=== PATIENT | male | born 1955 | race Caucasian/White ===

== ENCOUNTER 2016-11-06 09:42 | Emergency (ER) | payer OTHER ==
[~2016-11-06] VITALS: Ht 172.7 cm; Wt 59.0 kg
[~2016-11-06 09:42] MED LIST: BACTRIM DS TAB1 EACH PO; KEFLEX500 MG PO; NORCO 5-325 TA1 EACH PO; ZPAK PO
[2016-11-06 10:13] LABS: BASOPHILS 0.7 % (0.0-2.0); EOSINOPHILS 3.9 % (0.0-3.0); HEMATOCRIT 50.2 % (42.0-52.0); HEMOGLOBIN 17.7 gm/dL (14.0-18.0); LYMPHOCYTES 38.9 % (24.0-44.0); MCH 39.3 pg (26.0-34.0); MCHC 35.3 % (28.0-37.0); MCV 111.4 fL (80.0-100.0); MONOCYTES 10.1 % (1.0-8.0); PLATELET COUNT 203 thou/uL (150-400); POLYS 46.4 % (36.0-66.0); WBC 8.6 thou/uL (4.0-11.0)
[2016-11-06 10:17] LABS: MANUAL DIFF NO
[2016-11-06] MEDS ORDERED: VITAMIN D 5050000 I1 PO (10:22)
[2016-11-06] MEDS ORDERED: ADULT LOW DOSE81 MG PO (10:22)
[2016-11-06] MEDS ORDERED: [UNRECOGNIZED DRUG - REMARK] (10:22)
[2016-11-06 10:23] LABS: CALCIUM 8.3 mg/dL (8.5-10.1); CREATININE 0.6 mg/dL (0.6-1.3); POTASSIUM 3.7 mmol/L (3.5-5.1)
[2016-11-06] MEDS ORDERED: LISINOPRIL10 MG PO (10:23)
[2016-11-06] MEDS ORDERED: GABAPENTIN 100100 MG PO (10:23)
[2016-11-06] MEDS ORDERED: UNICOMPLEX M TA1 TA1 PO (10:23)
[2016-11-06] MEDS ORDERED: FOLIC ACID1 MG PO (10:23)
[2016-11-06] MEDS ORDERED: VITAMIN B-1100 M1 PO (10:24)
[2016-11-06 10:28] LABS: ALBUMIN 3.5 g/dL (3.4-5.0); TOTAL BILIRUBIN 0.5 mg/dL (<0.1-1.0); TOTAL PROTEIN 7.1 g/dL (6.4-8.2)
[2016-11-06 11:48] LABS: URINE BLOOD NEGATIVE (Negative); URINE COLOR YELLOW; URINE GLUCOSE-RANDOM* NEGATIVE (Negative); URINE KETONES TRACE (Negative); URINE NITRITE NEGATIVE (Negative); URINE PROTEIN (DIPSTICK) TRACE (Negative)
[2016-11-06 11:49] LABS: URINE BILIRUBIN NEGATIVE (Negative)
[2016-11-06 12:21] VITALS: BP 147/95
== END 2016-11-06 12:43 | disposition home or self-care (01) ==
LOC: ER 09:42
PROVIDERS: Nurse Practitioner Family
DX: R53.1 Weakness (principal); F10.20 Alcohol dependence, uncomplicated; F17.210 Nicotine dependence, cigarettes, uncomplicated; F10.99 Alcohol use, unspecified with unspecified alcohol-induced disorder; I10 Essential (primary) hypertension; E78.5 Hyperlipidemia, unspecified; Z95.5 Presence of coronary angioplasty implant and graft; Z91.19 Patient's noncompliance with other medical treatment and regimen

== ENCOUNTER 2017-07-11 01:31 | Inpatient (IN) | payer OTHER ==
[~2017-07-11] VITALS: Ht 175.3 cm; Wt 63.3 kg
--- NOTE | ~2017-07-11 | EKG ---
[address] [address] ELECTROCARDIOGRAM REPORT Name: PÉREZZO HAINES Room #: 451-P ADM IN M.R.#: [id number] Admission: 07/11/17 Attend Phys: Hanna Huizar Discharge: Date of : 59 Report #: [id number] THIS REPORT FOR: //name// [facility] ED Test Date: 2017-07-11 Test Time: 01:47:09 Pat Name: ZO PÉREZ Department: Room: [facility] Gender: M Principal Android Developer: shirley : 1955 Requested By: Chelsey Ybarra Order Number: [id number] MD: Kermit Mckinney Measurements Intervals [place] Rate: 103 P: 71 AK: 154 QRS: 66 QRSD: 97 T: 78 QT: 350 QTc: 458 Interpretive Statements Sinus tachycardia Compared to ECG 10/29/2012 23:33:54 Poor R-wave progression no longer present Electronically Signed On 07-11-2017 9:01:59 CDT by Kermit Mckinney [email or web address] <ELECTRONICALLY SIGNED> By: Kermit Mckinney MD, [facility] 07/11/17 09 0147 014 Kermit Mckinney MD, FACC /EPI
[~2017-07-11 01:31] MED LIST changes: +ADULT LOW DOSE81 MG PO; +FOLIC ACID1 MG PO; +GABAPENTIN 100100 MG PO; +LISINOPRIL10 MG PO; +UNICOMPLEX M TA1 TA1 PO; +VITAMIN B-1100 M1 PO; +VITAMIN D 5050000 I1 PO; +[UNRECOGNIZED DRUG - REMARK]
[2017-07-11 01:32] VITALS: BP 136/86
[2017-07-11 02:07] LABS: ABSOLUTE NEUTROPHILS 3.6 thou/uL (1.4-8.2); BASOPHILS 0.6 % (0.0-2.0); EOSINOPHILS 3.2 % (0.0-3.0); HEMATOCRIT 45.9 % (42.0-52.0); LYMPHOCYTES 33.2 % (24.0-44.0); MCH 39.9 pg (26.0-34.0); MCHC 34.8 g/dL (28.0-37.0); MCV 114.5 fL (80.0-100.0); MONOCYTES 8.9 % (1.0-8.0); PLATELET COUNT 224 thou/uL (150-400); POLYS 54.1 % (36.0-66.0); RBC 4.01 mil/uL (4.50-6.00); RDW 14.5 % (10.5-14.5); WBC 6.7 thou/uL (4.0-11.0)
[2017-07-11 02:15] LABS: CALCIUM 8.3 mg/dL (8.5-10.1); CREATININE 0.5 mg/dL (0.7-1.3); MANUAL DIFF NO; POTASSIUM 3.5 mmol/L (3.5-5.1)
[2017-07-11 02:21] LABS: ALBUMIN 3.1 g/dL (3.4-5.0); DIRECT BILIRUBIN 0.1 mg/dL (<0.1-0.3); TOTAL BILIRUBIN 0.4 mg/dL (<0.1-1.0); TOTAL PROTEIN 6.7 g/dL (6.4-8.2)
[2017-07-11 02:45] LABS: URINE BILIRUBIN NEGATIVE (Negative); URINE BLOOD NEGATIVE (Negative); URINE COLOR YELLOW; URINE GLUCOSE-RANDOM* NEGATIVE (Negative); URINE KETONES NEGATIVE (Negative); URINE NITRITE NEGATIVE (Negative); URINE PROTEIN (DIPSTICK) NEGATIVE (Negative); URINE SPECIFIC GRAVITY 1.015 (1.003-1.035)
[2017-07-11 03:35] VITALS: BP 147/93
[2017-07-11 05:01] LABS: AMP/METHAMP Negative (Negative); BARBITURATES Negative (Negative); BENZODIAZEPINES Negative (Negative); COCAINE Negative (Negative); METHADONE Negative (Negative); OPIATES Negative (Negative); PCP Negative (Negative); THC Negative (Negative)
[2017-07-11 06:27] LABS: MAGNESIUM 1.7 mg/dL (1.8-2.4)
[2017-07-11 07:14] VITALS: BP 120/74
[2017-07-11 11:30] VITALS: BP 163/91
[2017-07-11 15:09] VITALS: BP 153/87
[2017-07-11 19:25] VITALS: BP 187/95
[2017-07-12 00:17] VITALS: BP 160/91
[2017-07-12 04:19] VITALS: BP 139/84
[2017-07-12 07:17] VITALS: BP 150/79
[2017-07-12 11:29] VITALS: BP 132/93
[2017-07-12 15:11] VITALS: BP 151/85
[2017-07-12 19:41] VITALS: BP 144/83
[2017-07-13 04:33] VITALS: BP 133/96
[2017-07-13 08:06] VITALS: BP 141/88
[2017-07-13] MEDS ORDERED: GABAPENTIN 100100 MG PO (10:15)
[2017-07-13] MEDS ORDERED: VITAMIN B-1100 M2 PO (10:15)
[2017-07-13] MEDS ORDERED: NORVASC10 MG PO (10:15)
[2017-07-13] MEDS ORDERED: PRENATAL PO (10:15)
[2017-07-13 10:31] VITALS: BP 141/88
== END 2017-07-13 11:04 | disposition home or self-care (01) | DRG 897 ==
LOC: ER 01:31 → 4W 02:47 → EROBS 02:47 → 4W 03:31
PROVIDERS: Emergency Medicine; Nurse Practitioner Acute Care
DX: F10.239 Alcohol dependence with withdrawal, unspecified (principal); E11.40 Type 2 diabetes mellitus with diabetic neuropathy, unspecified; I10 Essential (primary) hypertension; E78.5 Hyperlipidemia, unspecified; F10.229 Alcohol dependence with intoxication, unspecified; J44.9 Chronic obstructive pulmonary disease, unspecified; F17.210 Nicotine dependence, cigarettes, uncomplicated; E83.42 Hypomagnesemia; Z79.82 Long term (current) use of aspirin; Z79.899 Other long term (current) drug therapy; Z91.14 Patient's other noncompliance with medication regimen; Z86.73 Personal history of transient ischemic attack (TIA), and cerebral infarction without residual deficits; Z95.5 Presence of coronary angioplasty implant and graft
CPT/HCPCS: 10045

== ENCOUNTER 2019-10-05 03:55 | Inpatient (IN) | payer OTHER ==
[~2019-10-05] VITALS: Ht 175.3 cm; Wt 64.0 kg
[2019-10-05] VITALS (8 sets, daily range): BP systolic 111–138; BP diastolic 65–81
[~2019-10-05 03:55] MED LIST changes: +NORVASC10 MG PO; +PRENATAL PO; +VITAMIN B-1100 M2 PO
[2019-10-05] MEDS ORDERED: AZITHROMYCIN500 MG PO (04:00)
[2019-10-05] MEDS ORDERED: MECLIZINE HCL25 M1 PO (04:01)
[2019-10-05] MEDS ORDERED: LISINOPRIL2.5 MG PO (04:02)
[2019-10-05] MEDS ORDERED: PLAVIX 75 MG TA75 MG PO (04:02)
[2019-10-05] MEDS ORDERED: LIPITOR80 MG PO (04:03)
[2019-10-05] MEDS ORDERED: TESSALON PERLE100 M1 PO (04:03)
[2019-10-05] MEDS ORDERED: RENAL-VITE TAB0.8 MG PO (04:04)
[2019-10-05] MEDS ORDERED: ADVAIR 250-501 EACH INH (04:12)
[2019-10-05] MEDS ORDERED: PROAIR HFA8.5 GM INH (04:12)
--- NOTE | 2019-10-05 04:12 | NUR ---
RT AT BEDSIDE SPEAKING WITH PATIENT. PATIENT STATES HE IS SUPPOSED TO HAVE HOME NEBULIZER TREATMENTS, BUT DIDN'T KNOW WHERE TO GET PRESCRIPTION FILLED
[2019-10-05 04:32] LABS: BE(vivo) 1.3 mmol/L (-2 to +3); HCO3 27.9 mmol/L (22.0-26.0); PCO2 VENOUS 51.2 mmHg (41.0-51.0); PO2 VENOUS 68.6 mmHg (35.0-45.0)
[2019-10-05 04:34] LABS: ABSOLUTE NEUTROPHILS 6.9 thou/uL (1.4-8.2); BASOPHILS 0.8 % (0.0-2.0); EOSINOPHILS 15.5 % (0.0-3.0); HEMATOCRIT 48.9 % (42.0-52.0); HEMOGLOBIN 16.4 gm/dL (14.0-18.0); LYMPHOCYTES 25.1 % (24.0-44.0); MCH 32.6 pg (26.0-34.0); MCHC 33.6 g/dL (28.0-37.0); MCV 97.2 fL (80.0-100.0); MONOCYTES 8.8 % (1.0-8.0); PLATELET COUNT 348 thou/uL (150-400); POLYS 49.8 % (36.0-66.0); RBC 5.04 mil/uL (4.50-6.00); RDW 13.3 % (10.5-14.5); WBC 13.8 thou/uL (4.0-11.0)
[2019-10-05 04:41] LABS: ANION GAP 4 mmol/L (7-16); BUN 7 mg/dL (7-18); CALCIUM 9.5 mg/dL (8.5-10.1); CHLORIDE 102 mmol/L (98-107); CO2 35 mmol/L (21-32); CREATININE 0.9 mg/dL (0.7-1.3); GLUCOSE 106 mg/dL (74-106); SODIUM 141 mmol/L (136-145)
[2019-10-05 04:51] LABS: ALBUMIN 4.4 g/dL (3.4-5.0); MAGNESIUM 2.1 mg/dL (1.8-2.4); SGOT 26 U/L (15-37); SGPT 23 U/L (30-65); TOTAL BILIRUBIN 0.3 mg/dL (<0.1-1.0); TOTAL PROTEIN 8.2 g/dL (6.4-8.2); TROPONIN-I <0.06 ng/mL (<0.06)
[2019-10-05 04:56] LABS: PROTIME 10.7 Seconds (9.3-11.4)
--- NOTE | 2019-10-05 05:17 | NUR ---
HANDOFF REPORT COMPLETED AND SENT TO THE 3W PRINTER AT THIS TIME.
--- NOTE | 2019-10-05 06:40 | NUR ---
admitted to [facility]. his dtr will take his medications home today. this man is having respiratory symptoms for the past two weeks. he was on po azithromycin, but he didnt think he was getting any better and stopped taking. o2 sat 99% on the 4 liters he is curently on. he continues to smoke up to time of admission. iv fluids started. he is agreeable and friendly.
--- NOTE | 2019-10-05 08:40 | EKG ---
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
[2019-10-05 10:41] LABS: PROCALCITONIN < 0.05 ng/mL (<0.50)
--- NOTE | 2019-10-05 12:47 | NUR ---
ASSESSMENT: CM REVIEWED CHART AND MET WITH PATIENT AT THE BEDSIDE. PT WAS ADMITTED WITH COPD EXACERBATION. PT REPORTS THAT HE LIVES IN A HOUSE WITH HIS . PT REPORTS TWO STEPS TO ENTER AND NO STEPS ONCE INSIDE. PT REPORTS THAT HE AMBULATES USING A CANE AND ALSO HAS A WALKER AT HOME. PT REPORTS HE WEARS 3L OXYGEN AT HOME BUT STATES HE IS NOT SURE WHO HIS PROVIDER IS. PT REPORTS HE HAS A RX FOR A NEBULIZER BUT DOES NOT KNOW WHERE TO GET ONE AND IS IN NEED OF ONE. CM DISCUSSED WITH ATTENDING AND RX FOR NEBULIZER WAS RECEIVED AND CM REACHED OUT TO [facility] WHO STATES THEY CAN SUPPLY IT TO PT. CM CONTACTED MEDICAID PRIOR AUTH LINE [phone] AN GOT APPROVAL FOR NEBULIZER. [facility] STATES THEY WILL DELIVER PRIOR TO PT DISCHARGING. PT DENIES HAVING HH IN THE PAST OR BEING TO A SNF. PT DOES NOT ANTICIPATE HAVING ANY OTHER NEEDS PRIOR TO DISCHARGE AND IS HOPEFUL TO RETURN HOME WITH NO NEEDS. CM WILL CONTINUE TO FOLLOW.
[2019-10-05] MEDS ORDERED: NEURONTIN100 MG PO (14:20)
[2019-10-05] MEDS ORDERED: GABAPENTIN600 M1 PO (14:22)
--- NOTE | 2019-10-05 18:18 | NUR ---
RECEIVED PT'S CARE AROUND 1100; PT. AOX4; NO C/O PAIN; ST. TAKING BP MEDICATION AT HOME WELL GABAPENTIN; NO ON EMAR; PHYSICIAN AT THE BED SIDE; NOTIFIED; EDUCATED ABOUT CALLING SOLISO GETTING UP FROM BED; NO ANSWER BACK; AROUND 1400 SCHEDULED GABAPENTIN 100MG ATTEMPTED TO GIVE IT; PT. ST. DOES NOT TAKE 100 MG ANYMORE; ST. TAKES AT HOME "TWO PILLS & A HALF IN THE MORNING AND AT TWO IN THE AFTERNOON EACH PILL HAS 600 MG & JUST TWO PILLS AT NIGHT"; REFUSED GABAPENTIN 100 MG; HOME MEDICATION LIST UPDATE; PHYSICIAN NOTIFIED; NO CALL BACK; STEAK SAUCE MAKER ROUNDING ON FLOOR; NOTIFIED; ORDERS UPDATE; STEAK SAUCE MAKER NOTIFIED ABOUT HX OF DM & TAKIN STEROIDS AT THE MOMENT; PT. ON LOW SLADING SCALE; INSULIN COVER AT DINNER TIME; SA ON THE MONITOR; MONITORING; ASSESSMENT CHARGED; FOLLOWING POC; WILL PASS ON REPORT;
--- NOTE | 2019-10-05 22:37 | NUR ---
PT WATCHING TV IN BED, O2 PER NC. PT REPORTED DRY NOSE FROM O2 AND RT CALLED FOR HUMIDIFICATION. PT REPORTED TO RT THAT HIS COUGH MAKES HIS HEAD HURT, AND ALMOST PASS OUT. RT REPORTED THAT WHEN PT CAOUGHED HE DID CHANGE COLORS. COMPOSITE WORKER CONTACTED AND ORDERS RECEIVED. PT REQUESTED SNACK AND PROVIDED. PT VERBALIZED HE WILL ASK FOR ASSIST PRIOR TO AMBULATION, USING URINAL. LUNGS REMAIN COARSE WITH WHEEZES. PER PHARMACY REQUEST RE CLARIFIED PTS HOME NEURONTIN DOSES.
[2019-10-06 00:08] LABS: GLYCOHEMOGLOBIN (HGB A1C) 5.5 % (4.8-5.6)
--- NOTE | 2019-10-06 04:03 | NUR ---
Upon receiving care of patient, patient resting in bed watching TV. Patient alert and oriented x4. O2 per NC at 3.5L. Pleasant, cooperative and talkative. HRR. Ambulatory with cane and standby assist. Call light within reach. Denies pain or discomfort. Patient had an episode of increased cough and difficulty breathing approximately 0335. HAMILTON Martin, notified. Order obtained for PRN nebulizer treatments and Tessalon Pearles. Patient reported nausea at that time also. Patient O2 decreased to 85%, HR increased to 120. Patient coughing up large amounts of thick, yellow mucous. RT notified and is currently providing neb tx. Patient remains on IV abx. No s/s of adverse effects noted at this time.
[2019-10-06 04:12] VITALS: BP 128/71
[2019-10-06 05:48] LABS: HEMATOCRIT 43.4 % (42.0-52.0); HEMOGLOBIN 14.5 gm/dL (14.0-18.0); MCH 32.3 pg (26.0-34.0); MCHC 33.4 g/dL (28.0-37.0); MCV 96.6 fL (80.0-100.0); PLATELET COUNT 311 thou/uL (150-400); RDW 13.2 % (10.5-14.5); WBC 26.3 thou/uL (4.0-11.0)
[2019-10-06 05:51] LABS: CALCIUM 9.1 mg/dL (8.5-10.1); CREATININE 0.8 mg/dL (0.7-1.3); MAGNESIUM 1.9 mg/dL (1.8-2.4); POTASSIUM 4.4 mmol/L (3.5-5.1)
[2019-10-06 07:29] VITALS: BP 119/68
[2019-10-06 09:37] LABS: ABSOLUTE NEUTROPHILS 23.9 thou/uL (1.4-8.2); PLATELET ESTIMATE NORMAL
[2019-10-06 15:20] VITALS: BP 99/57
--- NOTE | 2019-10-06 20:08 | NUR ---
pt is A&OX3, PT is continuing o2 3L/MIN/NC AND PO/IV ABX, PT's VS and o2sat are stable , pt denies pain and SOB .
[2019-10-06 21:00] VITALS: BP 139/65
[2019-10-07 02:43] LABS: URINE BILIRUBIN NEGATIVE (Negative); URINE BLOOD NEGATIVE (Negative); URINE CLARITY CLEAR; URINE COLOR YELLOW; URINE GLUCOSE-RANDOM* 1+ (Negative); URINE KETONES NEGATIVE (Negative); URINE LEUKOCYTES NEGATIVE (Negative); URINE NITRITE NEGATIVE (Negative); URINE PROTEIN (DIPSTICK) NEGATIVE (Negative); URINE UROBILINOGEN 0.2 E.U./dl (0.2-1.0)
--- NOTE | 2019-10-07 03:34 | NUR ---
URINE CULTURE AND UA COLLECTED. TONIGHT. COUGHING FORCEFULLY, AND HE IS COUGHING UP SPUTUM. TAKING LARGE AMOUNTS OF WATER PO. CAREPLAN REVIEWED.
[2019-10-07 04:50] VITALS: BP 122/62
[2019-10-07 06:11] LABS: MCH 32.3 pg (26.0-34.0); MCHC 33.2 g/dL (28.0-37.0); MCV 97.2 fL (80.0-100.0); PLATELET COUNT 312 thou/uL (150-400); RBC 4.32 mil/uL (4.50-6.00); RDW 13.6 % (10.5-14.5); WBC 26.3 thou/uL (4.0-11.0)
[2019-10-07 08:35] VITALS: BP 121/77
[2019-10-07 09:03] LABS: ABSOLUTE NEUTROPHILS 22.9 thou/uL (1.4-8.2); PLATELET ESTIMATE NORMAL
--- NOTE | 2019-10-07 13:06 | NUR ---
ON-GOING ASSESSMENT: CM REVIEWED CHART AND SPOKE WITH ATTENDING. THERE WAS CONCERN FOR POSSIBLE LUNG MASS BUT CT WAS DONE AND NO LONG MASS SEEN PER ATTENDING. PT CONTINUES TO BE ON IV ANBX AND IV STEROIDS. PT IS NOT MEDICALLY STABLE FOR DISCHARGE AT THIS TIME. PT DENIES THE NEED FOR PHYSICAL THERAPY AND REPORTS HE GETS AROUND WELL. CM WILL CONTINUE TO FOLLOW TO ASSIST NEEDED.
[2019-10-07 15:37] VITALS: BP 113/63
[2019-10-07 19:06] VITALS: BP 122/63
--- NOTE | 2019-10-08 00:18 | NUR ---
PT WATCHING TV, AMBULATED IN [place]. GAIT STEADY. O2 PER NC. PT NOT C/O PAIN OR COUGH. CHEERFUL JOKING WITH STAFF. NO CONCERNS EXPRESSED RE LLE SIDE NUMBNESS WEAKNESS. LUNGS WITH WHEEZES.
[2019-10-08 04:07] VITALS: BP 130/69
[2019-10-08 08:00] VITALS: BP 130/80
[2019-10-08] MEDS ORDERED: ACETAMINOPHEN325 M1 PO (12:25)
[2019-10-08] MEDS ORDERED: IPRAT-ALBUT 0.5-3 ML INH (12:25)
[2019-10-08] MEDS ORDERED: RAYOS5 MG PO (12:25)
[2019-10-08] MEDS ORDERED: HYDROCODONE-CH115 ML PO (12:25)
[2019-10-08] MEDS ORDERED: AZITHROMYCIN 2250 MG PO (12:25)
[2019-10-08] MEDS ORDERED: MUCINEX600 MG PO (12:25)
[2019-10-08] MEDS ORDERED: CEFUROXIME500 MG PO (12:25)
--- NOTE | 2019-10-08 12:52 | NUR ---
ON-GOING ASSESSMENT: PT HAS ORDERS TO DISCHAGRE HOME TODAY. PT HAS A RX FOR NEBULIZER AND NO PREFERENCE OF DME COMPANY. CM CONTACTED [facility] WHO STATS SHE WILL DELIVER THE NEBULIZER TO HIS ROOM SHORTLY. [facility]AS[facility] WAS ALREADY GIVEN RX. CM NOTIFIED BEDSIDE RN AND PATIENT. PT ALREADY HAS HOME OXYGEN ARRANGED AND PTS DAUGHTER IS BRINGING UP A PORTABLE TANK FOR HIM TO HAVE AT DISCHARGE. PT REPORTS NO FURTHER NEEDS FROM CM.
[2019-10-08 12:53] VITALS: BP 130/80
[2019-10-08 12:57] VITALS: BP 130/80
--- NOTE | 2019-10-08 13:15 | NUR ---
pt is A&O X3, PT is continuing IV and po ABX, PT IS ON O2 3L/MIN/NC, PT denies sob when pt walks in the hallway, pt's vs are stable, RN has received order , pt will d/c to home soon.
== END 2019-10-08 14:13 | disposition home health service (06) | DRG 189 ==
LOC: ER 03:55 → EROBS 04:51 → 3W 04:51 → ENTRNSPT 10-08 14:06 → EDTRNSPTSTS 10-08 14:08 → 3W 10-08 14:13
PROVIDERS: Emergency Medicine; Nurse Practitioner; ADMIT Internal Medicine
DX: J96.21 Acute and chronic respiratory failure with hypoxia (principal); I69.354 Hemiplegia and hemiparesis following cerebral infarction affecting left non-dominant side; J43.9 Emphysema, unspecified; I10 Essential (primary) hypertension; E78.5 Hyperlipidemia, unspecified; R91.8 Other nonspecific abnormal finding of lung field; E11.51 Type 2 diabetes mellitus with diabetic peripheral angiopathy without gangrene; F17.210 Nicotine dependence, cigarettes, uncomplicated; E11.42 Type 2 diabetes mellitus with diabetic polyneuropathy; F10.10 Alcohol abuse, uncomplicated; J96.22 Acute and chronic respiratory failure with hypercapnia; D72.829 Elevated white blood cell count, unspecified; Z95.820 Peripheral vascular angioplasty status with implants and grafts; Z71.6 Tobacco abuse counseling; Z71.41 Alcohol abuse counseling and surveillance of alcoholic
CPT/HCPCS: 10879

== ENCOUNTER 2020-02-26 13:30 | Emergency (ER) | payer OTHER ==
[~2020-02-26] VITALS: Ht 172.7 cm; Wt 71.2 kg
[~2020-02-26 13:30] MED LIST changes: +ACETAMINOPHEN325 M1 PO; +ADVAIR 250-501 EACH INH; +AZITHROMYCIN 2250 MG PO; +AZITHROMYCIN500 MG PO; +CEFUROXIME500 MG PO; +GABAPENTIN600 M1 PO; +HYDROCODONE-CH115 ML PO; +IPRAT-ALBUT 0.5-3 ML INH; +LIPITOR80 MG PO; +LISINOPRIL2.5 MG PO; +MECLIZINE HCL25 M1 PO; +MUCINEX600 MG PO; +NEURONTIN100 MG PO; +PLAVIX 75 MG TA75 MG PO; +PROAIR HFA8.5 GM INH; +RAYOS5 MG PO; +RENAL-VITE TAB0.8 MG PO; +TESSALON PERLE100 M1 PO
[2020-02-26 13:56] LABS: ABSOLUTE NEUTROPHILS 6.6 thou/uL (1.4-8.2); BASOPHILS 0.8 % (0.0-2.0); EOSINOPHILS 1.5 % (0.0-3.0); HEMATOCRIT 45.1 % (42.0-52.0); HEMOGLOBIN 15.7 gm/dL (14.0-18.0); LYMPHOCYTES 19.1 % (24.0-44.0); MCH 33.2 pg (26.0-34.0); MCHC 34.7 g/dL (28.0-37.0); MCV 95.5 fL (80.0-100.0); MONOCYTES 9.5 % (1.0-8.0); PLATELET COUNT 216 thou/uL (150-400); POLYS 69.1 % (36.0-66.0); RBC 4.73 mil/uL (4.50-6.00); RDW 17.5 % (10.5-14.5); WBC 9.6 thou/uL (4.0-11.0)
[2020-02-26 14:04] LABS: ANION GAP 12 mmol/L (7-16); BUN 10 mg/dL (7-18); CALCIUM 8.3 mg/dL (8.5-10.1); CHLORIDE 102 mmol/L (98-107); CO2 28 mmol/L (21-32); CREATININE 0.7 mg/dL (0.7-1.3); GLUCOSE 115 mg/dL (74-106); POTASSIUM 3.8 mmol/L (3.5-5.1); SODIUM 142 mmol/L (136-145)
[2020-02-26 14:13] LABS: APTT 29.6 Seconds (24.5-32.8); PROTIME 9.8 Seconds (9.3-11.4)
[2020-02-26 14:15] LABS: ALBUMIN 3.7 g/dL (3.4-5.0); MAGNESIUM 1.9 mg/dL (1.8-2.4); SGOT 52 U/L (15-37); SGPT 31 U/L (30-65); TOTAL BILIRUBIN 0.5 mg/dL (<0.1-1.0); TOTAL PROTEIN 8.1 g/dL (6.4-8.2); TROPONIN-I <0.06 ng/mL (<0.06)
[2020-02-26 15:49] VITALS: BP 174/91
--- NOTE | 2020-02-26 23:05 | EKG ---
[facility] [address] ELECTROCARDIOGRAM REPORT Name: BETOZO Room #: DEP [facility]#: [id number] Admission: 02/26/20 Attend Phys: Discharge: 02/26/20 Date of : 59 Report #: [id number] THIS REPORT FOR: cc: HANSEL FRIEND [facility] - Family physician unknown Jerardo Robles MD ~ THIS REPORT FOR: //name// [facility] ED Test Date: 2020-02-26 Test Time: 13:54:05 Pat Name: ZO PÉREZ Department: Room: Gender: M Personal Injury Litigation Paralegal: [facility] : 1955 Requested By: Maurice Parks Order Number: [id number] MD: Jerardo Robles Measurements Intervals [place] Rate: 95 P: 77 CO: 148 QRS: 64 QRSD: 94 T: 75 QT: 350 QTc: 440 Interpretive Statements Sinus rhythm Compared to ECG 10/05/2019 04:00:49 Sinus tachycardia no longer present Electronically Signed On 02-26-2020 23:03:38 CDT by Jerardo Robles [email or web address] <ELECTRONICALLY SIGNED> By: Jerardo Robles MD 02/26/20 2303 1354 1354 Jerardo Robles MD /PARTH
== END 2020-02-26 15:49 | disposition left against medical advice (07) ==
LOC: ER 13:30
PROVIDERS: Emergency Medicine
DX: R20.2 Paresthesia of skin (principal); F10.920 Alcohol use, unspecified with intoxication, uncomplicated; J44.9 Chronic obstructive pulmonary disease, unspecified; R20.0 Anesthesia of skin; R53.1 Weakness; E11.9 Type 2 diabetes mellitus without complications; I10 Essential (primary) hypertension; E78.5 Hyperlipidemia, unspecified; F17.210 Nicotine dependence, cigarettes, uncomplicated; Z98.61 Coronary angioplasty status; Z86.73 Personal history of transient ischemic attack (TIA), and cerebral infarction without residual deficits; Z79.2 Long term (current) use of antibiotics; Z79.899 Other long term (current) drug therapy; Y90.8 Blood alcohol level of 240 mg/100 ml or more

== ENCOUNTER 2020-04-05 03:20 | Emergency (ER) | payer OTHER ==
[~2020-04-05] VITALS: Ht 175.3 cm; Wt 70.3 kg
[2020-04-05 03:46] LABS: ABSOLUTE NEUTROPHILS 2.9 thou/uL (1.4-8.2); BASOPHILS 0.6 % (0.0-2.0); EOSINOPHILS 4.4 % (0.0-3.0); HEMATOCRIT 43.3 % (42.0-52.0); HEMOGLOBIN 14.7 gm/dL (14.0-18.0); LYMPHOCYTES 46.3 % (24.0-44.0); MCH 33.6 pg (26.0-34.0); MCHC 33.9 g/dL (28.0-37.0); MCV 99.2 fL (80.0-100.0); MONOCYTES 7.1 % (1.0-8.0); PLATELET COUNT 183 thou/uL (150-400); POLYS 41.6 % (36.0-66.0); RBC 4.36 mil/uL (4.50-6.00); RDW 18.5 % (10.5-14.5); WBC 6.9 thou/uL (4.0-11.0)
[2020-04-05 03:52] LABS: CREATININE 0.7 mg/dL (0.7-1.3); POTASSIUM 3.6 mmol/L (3.5-5.1)
[2020-04-05 03:58] LABS: TOTAL BILIRUBIN 0.5 mg/dL (0.2-1.0)
[2020-04-05 08:50] VITALS: BP 127/71
== END 2020-04-05 08:50 | disposition still patient (30) ==
LOC: ER 03:20
PROVIDERS: Student in an Organized Health Care Education/Training Program
DX: F10.129 Alcohol abuse with intoxication, unspecified (principal); R20.2 Paresthesia of skin; R20.0 Anesthesia of skin; I10 Essential (primary) hypertension; E78.5 Hyperlipidemia, unspecified; E11.9 Type 2 diabetes mellitus without complications; F17.210 Nicotine dependence, cigarettes, uncomplicated; Z79.899 Other long term (current) drug therapy; Y90.9 Presence of alcohol in blood, level not specified

== ENCOUNTER 2020-04-23 04:14 | Inpatient (IN) | payer OTHER ==
[~2020-04-23] VITALS: Ht 172.7 cm; Wt 63.5 kg
[2020-04-23 04:16] VITALS: BP 191/107
[2020-04-23 04:41] LABS: ABSOLUTE NEUTROPHILS 9.7 thou/uL (1.4-8.2); BASOPHILS 0.3 % (0.0-2.0); HEMOGLOBIN 14.9 gm/dL (14.0-18.0); LYMPHOCYTES 5.4 % (24.0-44.0); MCH 34.9 pg (26.0-34.0); MCV 102.7 fL (80.0-100.0); MONOCYTES 7.5 % (1.0-8.0); PLATELET COUNT 245 thou/uL (150-400); POLYS 86.8 % (36.0-66.0); RBC 4.28 mil/uL (4.50-6.00); RDW 19.4 % (10.5-14.5); WBC 11.2 thou/uL (4.0-11.0)
[2020-04-23 04:46] LABS: CALCIUM 8.8 mg/dL (8.5-10.1); CREATININE 1.3 mg/dL (0.7-1.3); POTASSIUM 3.8 mmol/L (3.5-5.1)
[2020-04-23 04:51] LABS: DIRECT BILIRUBIN 0.5 mg/dL (<0.1-0.2); TOTAL BILIRUBIN 1.6 mg/dL (0.2-1.0); TOTAL PROTEIN 8.2 g/dL (6.4-8.2)
[2020-04-23 08:01] LABS: URINE BILIRUBIN NEGATIVE (Negative); URINE BLOOD 2+ (Negative); URINE CLARITY CLEAR; URINE COLOR YELLOW; URINE GLUCOSE-RANDOM* NEGATIVE (Negative); URINE KETONES 3+ (Negative); URINE LEUKOCYTES-REFLEX NEGATIVE (Negative); URINE NITRITE-REFLEX NEGATIVE (Negative); URINE PROTEIN (DIPSTICK) 2+ (Negative); URINE SPECIFIC GRAVITY >= 1.030 (1.005-1.035); URINE UROBILINOGEN 0.2 E.U./dl (0.2-1.0)
[2020-04-23 08:29] LABS: MAGNESIUM 1.9 mg/dL (1.8-2.4); PHOSPHORUS 3.4 mg/dL (2.5-4.9)
[2020-04-23 08:34] LABS: CASTS None Seen /LPF (None Seen); CRYSTALS None Seen /LPF (None Seen); SQUAMOUS 0-3 Few /LPF (0-3); URINE RBC 0-2 Rare /HPF (0-2)
[2020-04-23 08:35] LABS: URINE WBC-REFLEX 0-5 Rare /HPF (0-5)
[2020-04-23 08:37] LABS: BACTERIA-REFLEX 1-9 Few /HPF (None Seen)
[2020-04-23 12:58] VITALS: BP 152/74
[2020-04-23 13:30] VITALS: BP 160/80
[2020-04-23 13:35] VITALS: BP 182/94
[2020-04-23 15:45] VITALS: BP 170/88
[2020-04-23 19:52] VITALS: BP 151/108
[2020-04-24] VITALS (9 sets, daily range): BP systolic 130–172; BP diastolic 79–89
--- NOTE | 2020-04-24 05:05 | NUR ---
NO NAUSEA OR VOMITING TONIGHT. HE STATE THAT HIS STOMACH IS DOING BETTER. BUT THAT IT FEELS SORE FROM VOMITING SO MANY DAYS AT HOME. CONTINUES ON IV FLUIDS. NO DISCHARGE CONCERNS VOICED.
[2020-04-24 10:38] LABS: HEMATOCRIT 39.8 % (42.0-52.0); HEMOGLOBIN 13.9 gm/dL (14.0-18.0)
[2020-04-24 10:46] LABS: CALCIUM 8.2 mg/dL (8.5-10.1); CREATININE 0.7 mg/dL (0.7-1.3); POTASSIUM 3.2 mmol/L (3.5-5.1)
--- NOTE | 2020-04-24 18:49 | NUR ---
PT CARE ASSUMED AT 0700. ASSESSMENTS CHARTED. MEDICATION CHARTED. PT TO MRI AT 1130. CIWA OF 2. PT COMPLAINS OF ABDOMINAL SORENESS DUE TO PREVIOUS VOMITING. DENIES ANY CURRENT N/V.
[2020-04-25] VITALS (8 sets, daily range): BP systolic 111–152; BP diastolic 69–88
--- NOTE | 2020-04-25 05:32 | NUR ---
PT RESTING QUIETLY IN ROOM, NO C/O PAIN, DOES C/O ABD INDIGESTION AND GAS PRN MEDS GIVEN, VOIDING PER URINAL AT SOB, FLUIDS INFUSING IN L AC, WILL CON'T TO MONITOR PER PPOC.
[2020-04-25 05:48] LABS: CALCIUM 8.2 mg/dL (8.5-10.1); CREATININE 0.8 mg/dL (0.7-1.3); MAGNESIUM 1.9 mg/dL (1.8-2.4); PHOSPHORUS 1.6 mg/dL (2.5-4.9); POTASSIUM 3.6 mmol/L (3.5-5.1)
--- NOTE | 2020-04-25 09:32 | NUR ---
spoke with patient via phone. Patient resides at home with . He has fallen at home. He reports he fell in bathtub and cannot assist from falls. He uses a cane/rolator walker in home all the time. Laundry in basement but he does not go to basement. Patient uses 3 liters of oxygen at home continuous but cannot recall agency. PCP Dr Teagan Jones at [facility]. Patient reports she would see him when he had not insurance and has been very helpful. Discussed ETOH resources. Patient aknowledges alcohol exacerbated his condition. He plans to quit on his own. He quit smoking on his own and has not smoked for 8 months. Patient openly reports he would like HH at [place]. He has no preference of an agency. Discussed possible rehab need patient wants to see how he does with therapy at hospital. [facility] following.
--- NOTE | 2020-04-25 19:10 | NUR ---
PT CARE ASSUMED AT 0700. ASSESSMENT CHARTED. MEDICATION CHARTED. HR BRIEFLY INTO THE 150'S WHEN OT WORKED WITH PT. REMOVED LAC IV, PHLEBITIS, BURNING. PLACED LT WRIST, 20, S/L.
[2020-04-26 05:11] VITALS: BP 120/66
--- NOTE | 2020-04-26 08:07 | NUR ---
PT RESTING QUIETLY IN ROOM, VOIDING PER URINAL, VSS, C/O NAUSEA ZOFRAN GIVEN, NO C/O PAIN, WILL CON'T TO MONITOR PER PPOC.
[2020-04-26 08:10] VITALS: BP 143/87
[2020-04-26] MEDS ORDERED: CHLORDIAZEPOXIDE5 M2 PO (08:48)
[2020-04-26 11:22] VITALS: BP 143/87
[2020-04-26 11:44] VITALS: BP 118/69
--- NOTE | 2020-04-26 12:09 | NUR ---
Spoke with physical therapy who reports patient would benefit from rehab prior to home. Sp with patient who is agreeable for acute rehab and prefers remain in hospital for rehab. 5N evaled and accepting. Sp with patient who is accepting. Updated phys who ammended dc orders. Updated rehab liason who is getting auth.
[2020-04-26 15:08] VITALS: BP 119/72
--- NOTE | 2020-04-26 15:17 | NUR ---
FAXED REFERRAL TO [facility] HH SPOKE WITH INTAKE AND THEY CAN ACCEPT ONCE DC'D FROM REHAB IF NEEDING HH AT TIME OF DC. DP TO FOLLOW.
--- NOTE | 2020-04-26 16:10 | NUR ---
ASSUMED CARE 0700. ALERT X4, FROM HOME WITH FAMIILY/. DENIES PAIN, TRIPP SOB. UP WITH ASSIST X1 C WALKER. TREATED CONSTIPATION WITY MOM WITHOUT BM NOTED AT THIS TIME. DC TO REHAB [facility]. REPORTED OFF TO RN ON [facility]. 3L NASAL CANNULA AT NIGHT. CALLS FOR ASSISTANCE. NSR ON TELE. IV AND TELE REMOVED PRIOR TO TRANSFER TO [facility]. PERSONAL ITEMS SENT WITH PATIENT.
--- NOTE | 2020-05-05 11:38 | HC ---
[facility] [address] [place] [address] CONSULTATION Name: ZO PÉREZ Room #: 216-P [facility] IN M.R.#: [id number] Admission: 04/23/20 Attend Phys: Pablo Wilson MD Discharge: 04/26/20 Date of : 59 Report #: [id number] THIS REPORT FOR: cc: HANSEL FRIEND MD Physician not on staff Pablo Wilson MD ~ CC: Noah FRIEND Physician staff DATE OF SERVICE: 04/26/2020 HISTORY OF PRESENT ILLNESS: The patient 65-year-old white male who was admitted to [facility] on 04/23/2020 with significant vomiting multiple emesis, feeling very weak. He has been struggling with the pandemic and although he had quit drinking over a year and half ago, he started drinking again approximately a month ago. He has been drinking for approximately the last month. His last drink was the day prior to admission. He was noted to have electrolyte abnormalities, ETOH use disorder, placed on Librium with gradual taper, Psychiatry assisted. He does have ataxia, noted to have presence of Wernicke/myopathy secondary to ETOH along with peripheral neuropathy. He has had a significant decline in his overall functioning from his premorbid status and we are seeing him in rehabilitation medicine consultation. PAST MEDICAL HISTORY: Includes prior CVA. He notes it was a right brain cerebrovascular accident with some residual left-sided numbness. History of chronic tobacco abuse in the past, quit about a year ago, but does have COPD and is in chronic O2, 3 liters. History of hypertension, peripheral vascular disease, diabetes mellitus type 2, diabetic peripheral neuropathy. MEDICATIONS: Please see the full medication listing. ALLERGIES: No known drug allergies. SOCIAL HISTORY: He lives with his . She has multiple medical problems as well and is apparently on the liver transplant waiting list and can only give him limited assistance. There are 2 steps in. He utilized a cane as he had improved significantly from his past stroke when he used a roller walker. There are daughters that worked in the area and are involved. REVIEW OF SYSTEMS: He did not offer any current complaints of chest pain, shortness of breath or abdominal discomfort. PHYSICAL EXAMINATION: GENERAL: A 65-year-old bearded pleasant white male, cooperative. No obvious distress. Alert, oriented, appropriate, appears to be a good historian. [address] [address] CONSULTATION Name: ZO PÉREZ Room #: 216-P [facility] IN M.R.#: [id number] Admission: 04/23/20 Attend Phys: Pablo Wilson MD Discharge: 04/26/20 Date of : 59 Report #: [id number] VITAL SIGNS: Temperature 37.2, pulse 88, respirations 18, blood pressure 143/87. HEENT: Facies appeared to be symmetric. EXTREMITIES: Functional range of motion of both upper extremities, strength is a grade 4-/5. He does have some decreased coordination of the left upper extremity with [id number] and fine finger dexterity and appears to have some dysmetria. Lower extremities; definite decreased distal sensation bilateral large toe proprioception. Strength is probably a grade 4-/5. Transfers sit to stand are standby assistance, gait 30 feet min assist with a front-wheeled walker. He is unsteady, has evidence of decreased balance. There is some tremulousness is noted. He has a forward flexed posture, some unsteadiness during transitions, min assist with basic toilet transfers, min assist for tram-care. ASSESSMENT: A 65-year-old white male with the following problem list: 1. Ataxia. 2. Myopathy. 3. Peripheral neuropathy. 4. Recent acute alcohol withdrawal. 5. Prior history of cerebrovascular accident with some residual hemisensory decrease. 6. Past tobacco. 7. Hypertension. 8. Gait instability with decreased balance, potential for falls. PLAN: I would recommend a short acute in-hospital inpatient rehabilitation stay to maximize his functional independence with mobility and ADLs. The patient is very motivated, regret starting to drink again with the pandemic. He is intent on quitting alcohol and notes that he is already quit cigarettes. Insurance precertification issues will be checked regarding a short acute in-hospital inpatient rehabilitation stay to improve his functional independence, so he can return back to the home setting. Thank you for asking us to assist in this patient's car. <ELECTRONICALLY SIGNED> By: Pablo Wilson MD 05/05/20 1138 [id number] Pablo Wilson MD /nt
== END 2020-04-26 16:29 | DRG 897 ==
LOC: ER 04:14 → EROBS 11:24 → 2N 11:24
PROVIDERS: Emergency Medicine; Hospitalist; ADMIT Physical Medicine & Rehabilitation; ATTEND Physical Medicine & Rehabilitation
DX: F10.239 Alcohol dependence with withdrawal, unspecified (principal); E87.2 Acidosis; J43.9 Emphysema, unspecified; I10 Essential (primary) hypertension; E78.5 Hyperlipidemia, unspecified; B88.8 Other specified infestations; E11.51 Type 2 diabetes mellitus with diabetic peripheral angiopathy without gangrene; E11.42 Type 2 diabetes mellitus with diabetic polyneuropathy; G72.9 Myopathy, unspecified; R27.0 Ataxia, unspecified; E11.65 Type 2 diabetes mellitus with hyperglycemia; E87.8 Other disorders of electrolyte and fluid balance, not elsewhere classified; Z86.73 Personal history of transient ischemic attack (TIA), and cerebral infarction without residual deficits; Z95.820 Peripheral vascular angioplasty status with implants and grafts; Z87.891 Personal history of nicotine dependence; Z79.899 Other long term (current) drug therapy
CPT/HCPCS: 10081

== ENCOUNTER 2020-04-26 14:09 | Inpatient (IN) | payer OTHER ==
[~2020-04-26] VITALS: Ht 172.7 cm; Wt 63.5 kg
[~2020-04-26 14:09] MED LIST changes: +CHLORDIAZEPOXIDE5 M2 PO
--- NOTE | 2020-04-26 19:37 | NUR ---
ASSUMED CARE OF PT AT 1630 WHEN PT BROUGHT TO UNITY BY NURSE ON PRIOR UNIT. RECEIVED REPORT PRIOR TO PT ADMISSION TO UNIT. PT ASSISTED INTO BED BY NURSING STAFF, ADMISSION WEIGHT, HEIGHT AND VITALS OBTAINED, ADMISSION EDUCATION PROVIDED, ADMISSION HX AND ASSESSMENT COMPLETED, CONSULTS CALLED, CONSENTS SIGNED. PT IS A&OX4 AND VITAL SIGNS ARE STABLE. PT DENIES PAIN. HR REGULAR, LUNG SOUNDS DIMINISHED, BOWEL SOUNDS ACTIVE, PT REPORTS NO BM SINCE 04/21, BOWEL MEDS GIVEN BY NURSE ON PRIOR UNIT, NO RESULTS AT THIS TIME. PER PRIOR NURSE, PT NO LONGER REQUIRES CIWA ASSESSMENTS. SKIN INTACT, ACCU CHECKS ACHS. MEDICATION LIST FAXED TO PHARMACY, FALL PRECAUTIONS IN PLACE AND NURSING WILL CONTINUE TO MONITOR.
[2020-04-26 20:15] VITALS: BP 130/77
--- NOTE | 2020-04-27 00:54 | NUR ---
PT ASSESSMENT COMPLETED AND VSS. MEDS GIVEN ORDERED AND WELL TOLERATED. STOOL SOFTNER GIVEN FOR CONTIPATION. SAT WNL ON 3L NC WHICH HE USES AT NIGHT AT HOME WELL. VOIDING PER URINAL. PLEASANT. CALM. SLEEPING WELL. WILL CONTINUE TO MONITOR FREQUENTLY.
[2020-04-27 05:43] LABS: HEMATOCRIT 37.3 % (42.0-52.0); HEMOGLOBIN 12.6 gm/dL (14.0-18.0); MCH 35.7 pg (26.0-34.0); MCHC 33.9 g/dL (28.0-37.0); MCV 105.4 fL (80.0-100.0); RBC 3.54 mil/uL (4.50-6.00); RDW 19.9 % (10.5-14.5); WBC 6.4 thou/uL (4.0-11.0)
[2020-04-27 05:56] LABS: CREATININE 0.7 mg/dL (0.7-1.3)
[2020-04-27 08:00] VITALS: BP 121/94
--- NOTE | 2020-04-27 10:30 | NUR ---
chart review, cm visited with pt, intro to cm, dcp, and team meeting. he getting ready to work with physical therapy. noted pt lives with , has a cane and walker. 2 steps enter 12 steps to basement for laundry. had some falls at home and is unable to assist him when he falls. [facility] if needed at dc. will cont following as needed for dc needs.
--- NOTE | 2020-04-27 11:41 | NUR ---
ASSUMED CARE AROUND 0700, PT A&O X 3, NO ACUTE DISTRESS NOTED. VSS, O2 ON RA/3L VIA NC AT HS. PT DENIES ANY PAIN OR DISCOMFORT. MEDS GIVEN PER ORDERS, TOLERATED WELL. BG ACHS, PARTICIPATED IN [place] THERAPIES. PT SITTING IN CHAIR, CALL LIGHT WITHIN REACH, WILL CONTINUE TO MONITOR PER POC.
[2020-04-27 19:36] VITALS: BP 119/68
--- NOTE | 2020-04-28 01:43 | NUR ---
PT ASSESSMENT COMPLETED AND VSS. MEDS GIVEN ORDERED AND WELL TOLERATED. SAT WNL ON 3L NC AT HS. FALL PRECAUTIONS IN PLACE. PT WAS GIVEN LARGE AMOUNT OF LAXITIVES DURING THE DAY WITH NO RESULTS. AT HS GAVE PT A SUPPOSITORY PER ORDERS. PT ALSO REQUESTED SOME PRUNE JUICE. PT ABD VERY DISTENDED AND FIRM. BS PRESENT. PT HAD SEVERAL SOFT BUT FORMED BOWEL MOVEMENTS. THEN PT HAD SEVERAL VERY LOOSE BOWEL MOVEMENTS. THEY WERE INCONTINENT. PT HAD EMESIS X 2. CONTACTED DISTILLERY LABORER AND GOT ORDER FOR NAUSE MEDICATION. HELPFUL. PT NOW RESTING WELL. BOWEL MOVEMENTS HAVE FINALLY CALMED DOWN. PT IS VERY TIRED BUT FEELING BETTER NOW THAT HE HAS HAD SEVERAL BOWEL MOVEMENTS. WILL CONTINUE TO MONITOR FREQUENTLY.
[2020-04-28 07:45] VITALS: BP 104/63
--- NOTE | 2020-04-28 15:42 | NUR ---
ASSUMED CARES AT 0700. PT AWAKE, ALERT AND ORIENTED*3. MUMBLED SPEECH. DENIES PAIN. VITALS REMAIN STABLE. PT UP WITH 1 MIN ASSIST, GB AND CANE OR WALKER, UNSTEADY GAIT. PARTICIPATED IN ALL THERAPIES AND TOLEREATED WELL. Q1H VISUAL CHECKS. CALL LIGHT WITHIN REACH. FALL PRECAUTIONS IN PLACE
[2020-04-28 19:30] VITALS: BP 129/70
--- NOTE | 2020-04-29 00:23 | NUR ---
PT AMB TO BR WITH CANE AND ASSIST X 1. VOIDING LARGE AMTS CLEAR YELLOW URINE PER URINAL. 02 ON AT 3L PER NC DURING THE NIGHT. PT DENIES PAIN OR DISCOMFORT. BED ALARM ON FOR SAFETY. PT APPEARS TO BE SLEEPING ON HOURLY ROUNDS.
[2020-04-29 07:50] VITALS: BP 122/70
--- NOTE | 2020-04-29 13:39 | NUR ---
ASSUMED CARES AT 0700. PT AWAKE, ALERT AND ORIENTED*4. MUMBLED SPEECH. DENIES PAIN. PT STATED THAT HE FEELS LIKE HE HAS REALLY IMPROVED AND DOING WELL IN THERAPY, WELL ENOUGH TO DC BY KWAKU. VITALS STABLE. UP WITH SBA, GB AND CANE, AMBULATED TO THE DINING AREA FOR ALL MEALS AND TOLERATED WELL. PARTICIPATED WELL IN ALL THERAPIES. [facility] VISUAL CHECKS. CALL LIGHT WITHIN REACH. FALL PRECAUTIONS IN PLACE
[2020-04-29 19:12] VITALS: BP 120/75
--- NOTE | 2020-04-30 00:28 | NUR ---
PT ALERT AND ORIENTED X 4. VOIDING ADEQUATE AMTS CLEAR YELLOW URINE PER URINAL. PT DENIES PAIN OR DISCOMFORT. BED ALARM ON FOR SAFETY. PT APPEARS TO BE SLEEPING ON HOURLY ROUNDS.
--- NOTE | 2020-04-30 06:28 | NUR ---
PT DRESSED AND HAS PERSONAL BELONGINGS PACKED. STATED HE IS LEAVING THIS MORNING. STATED WE HAVE DONE ALL WE CAN DO FOR HIM HERE SO IT'S TIME TO GO. ATTEMPTED TO GET PT TO STAY UNTIL A DOCTOR COMES IN TO SEE HIM BUT HE DECLINED. COMMUNITY MENTAL HEALTH WORKER ISAAC NOTIFIED. PAGED DR DELA CRUZ WITH NO RESPONSE. AMA FORM SIGNED BY PATIENT. HE IS WAITING FOR HIS RIDE.
--- NOTE | 2020-05-05 11:38 | H ---
[facility] [address] HISTORY AND PHYSICAL Name: ZO PÉREZ Room #: 509-P [facility] IN M.R.#: [id number] Admission: 04/26/20 Attend Phys: Pablo Wilson MD Discharge: 04/30/20 Date of : 59 Report #: [id number] THIS REPORT FOR: cc: HANSEL FRIEND MD Physician not on staff Pablo Wilson MD ~ CC: Pablo FRIEND Physician staff DATE OF SERVICE: 04/26/2020 POST-ADMISSION PHYSICIAN EVALUATION HISTORY OF PRESENT ILLNESS: The patient has been admitted for acute in-hospital inpatient rehabilitation. Please see my consult note dictation from yesterday as well as the history and physical documentation from today. He was admitted with gait ataxia and myopathy. He did have an episode of alcohol withdrawal and was seen by Psychiatry. He has a prior history of a CVA with some residual hemisensory deficits on the left. He is noted to have a significant decline in his functional status and has been admitted for acute in-hospital inpatient rehabilitation. As far as prior medical history, habits, social history, please see my consultation and the H and P documentation. MEDICATIONS: Please see the MAR. ALLERGIES: No known drug allergies. REVIEW OF SYSTEMS: No cough, headache. He has got some left-sided numbness, which is from his old stroke. Appears to have a reasonable appetite. PHYSICAL EXAMINATION: GENERAL: Bearded white male. VITAL SIGNS: As noted. CHEST: Sounded clear to auscultation. CARDIOVASCULAR: Regular rate and rhythm. ABDOMEN: Bowel sounds positive, nontender. EXTREMITIES: Functional range of motion of the upper and lower extremities with upper body strength probably a grade 4-/5. Lower extremity strength is probably 4-/5. He is min assist with transfers and short distance ambulation. ASSESSMENT: 1. Gait ataxia. 2. Myopathy. [facility] [address] [place] [address] HISTORY AND PHYSICAL Name: ZO PÉREZ Margareth Room #: 509-P [facility] IN .R.#: [id number] Admission: 04/26/20 Attend Phys: Pablo Wilson MD Discharge: 04/30/20 Date of : 59 Report #: [id number] 3. Peripheral neuropathy noted to be premorbid. 4. Recent ETOH withdrawal. 5. History of cerebrovascular accident with left hemisensory deficits. 6. Hypertension. 7. History of tobacco abuse. 8. Constipation. PLAN: The patient is admitted for acute in-hospital inpatient rehabilitation. From a post-admission physician evaluation perspective, there are no relevant changes since the preadmission screening. Please see the above review of prior and current medical and functional conditions and comorbidities. Please see the patient's previous and current functional status. As far as risk of complications, he does have multiple medical comorbidities as noted above. Initial plan of care involves the interdisciplinary acute inpatient rehabilitation program. Prognosis is reasonably good with estimated length of stay probably at least 6-10 days. Potential barriers would include his multiple medical comorbidities and decreased functional status. <ELECTRONICALLY SIGNED> By: Pablo Wilson MD 05/05/20 1138 1412 1431 Pablo Wilson MD /[facility]
--- NOTE | 2020-05-05 11:39 | PLAN ---
[facility] [place] [address] REHAB UNIT PLAN OF CARE Name: ZO PÉREZ Room #: 509-P [facility] IN M.R.#: [id number] Admission: 04/26/20 Attend Phys: Pablo Wilson MD Discharge: 04/30/20 Date of : 59 Report #: [id number] THIS REPORT FOR: //name// CC: Pablo FRIEND Physician staff DATE OF SERVICE: 04/28/2020 PROGRESS NOTE/OVERALL PLAN OF CARE SUBJECTIVE: The patient seen back today in followup. He is in no distress. Last recorded temperature 98.4, pulse 82, respirations 16, blood pressure 104/63. He is pleasant. No focal neuro changes are noted. He is working in therapies with transfers, min assist. Gait is 200 feet, 4-wheeled walker, min assist. He much prefers utilizing the standard cane. In occupational therapy, lower body dressing is supervision. ASSESSMENT: 1. Gait ataxia. 2. Myopathy. 3. Peripheral neuropathy noted to be premorbid. 4. Recent ETOH withdrawal. 5. History of cerebrovascular accident with left hemisensory deficits. 6. Hypertension. 7. History of tobacco abuse. PLAN: The overall plan of care is based on the preadmission screen, post-admission physician evaluation and information garnered from therapy assessments. 1. Estimated length of stay is probably 5-7 days pending progress. 2. Medical prognosis is reasonably good. 3. Anticipated interventions includes the interdisciplinary acute inpatient rehabilitation program. 4. Anticipated functional outcomes would be for the patient to become modified independent at least at the walker level if not the cane with mobility and ADLs. 5. Discharge destination would be back to the home setting where he lives with his . 6. Expected therapy by discipline includes PT, OT and speech. Speech therapy is going to be evaluating cognition and communication, this will be 1 hour per day, PT, OT and speech, 5 days a week throughout the duration of the acute inpatient rehabilitation stay. <ELECTRONICALLY SIGNED> By: Pablo Wilson MD 05/05/20 1139 1513 2244 Pablo Wilson MD /[facility]
--- NOTE | 2020-05-07 09:59 | HC ---
[facility] [place] [address] CONSULTATION Name: ZO PÉREZ Room #: 509-P [facility] IN M.R.#: [id number] Admission: 04/26/20 Attend Phys: Pablo Wilson MD Discharge: 04/30/20 Date of : 59 Report #: [id number] THIS REPORT FOR: cc: HANSEL FRIEND MD Physician not on staff Marquise Flores PhD ~ CC: Pablo FRIEND Physician staff DATE OF SERVICE: 04/29/2020 BEHAVIORAL STATUS EXAM ATTENDING PHYSICIAN: Pablo Wilson MD BOX FEEDER: Marquise Flores, PhD CLINICAL PRESENTATION: The patient is a 65-year-old male admitted to the rehab unit for comprehensive inpatient rehabilitation program for assistance in the management of a gait ataxia and myopathy. The patient had an episode of alcohol withdrawal during his early hospitalization. He has a history of a CVA with some residual hemisensory deficits on the left. He had a significant decline in functional status and was therefore admitted for inpatient treatment. His diagnosis on admission to the rehabilitation unit was gait ataxia, myopathy, peripheral neuropathy noted to be premorbid, recent alcohol withdrawal, history of CVA with left hemisensory deficits, hypertension, history of tobacco abuse and constipation. A complete description of his medical condition and history along with medications can be found in his medical record. Neuropsychological consultation was requested to provide assistance in the assessment of cognitive and emotional status and provide recommendations and services. Prior to this most recent medical event, he was living independently in his own home. The patient has 3 children. 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 The patient has an 8th grade education. He reports a history of alcohol abuse and a recent return to alcohol use following a prolonged quarantine necessary for the management of COVID-19. His family is supportive and he describes a degree of frustration and encouragement for him to monitor his behavior more carefully. TECHNIQUES UTILIZED: Clinical interview, review of medical records, staff consultation and behavioral observation, mini mental status exam 2 standard version, clock drawing and single category fluency assessment. EXAMINATION FINDINGS: The patient was alert and cooperative with the [facility] [address] [place] [address] CONSULTATION Name: ZO PÉREZ Room #: 509-P [facility] IN M.R.#: [id number] Admission: 04/26/20 Attend Phys: Pablo Wilson MD Discharge: 04/30/20 Date of : 59 Report #: [id number] assessment. He accurately described events surrounding his admission. He just does not report difficulty with sleep, appetite, energy level, anxiety or depression. He reports a strong desire to return home as soon as possible. He lacks insight into the extent to which alcohol use is a problem for him. His performance on the MMSE 2 brief version was 13/16, which is a T score of 41, percentile rank of 18. He was 3/3 for initial registration, 4/5 for orientation to time, 5/[address] and 1/3 for immediate recall of 3 items after a brief time delay and distraction. Performance on the MMSE 2 standard version was a raw score of 21/30, which is a T score of 37 and percentile rank of 10. He was 0/5 for serial 7's, 2/2 for naming, 1/1 for repetition, 3/3 for comprehension. He could read and follow single command and write a sentence. The patient had slight difficulty with copying a simple geometric design. Clock drawings within normal limits. Brief single category fluency was a T score of 39 with percentile rank of 14. Premorbid functioning is likely to have been in the low end of average range. However, current functioning is somewhat consistent with premorbid ability. However, subtle to mild deficits in cognition secondary to variability in concentration are likely. DIAGNOSTIC IMPRESSION: Alcohol use disorder Mild neurocognitive disorder, unspecified, without behavior disorder Unspecified anxiety disorder. RECOMMENDATIONS: The patient will require continued monitoring and encouragement to eliminate alcohol use. Use of relaxation techniques may be of benefit to help manage his anxiety. The patient descrobes a desire to be discharged as soon as possible. He reports having had a very good physical therapy session earlier, which he states indicate that his ambulation good. He appears to lack insight into his need for rehabilitation. Providing him educational information about the purpose of his treatment and writing down specific goals to be obtained prior to discharge. Thank you very much for allowing me to provide the consultation on this patient. <ELECTRONICALLY SIGNED> By: Marquise Flores, PhD 05/07/20 0959 1413 1949 Marquise Flores, PhD /nt
== END 2020-04-30 06:51 | disposition left against medical advice (07) | DRG 92 ==
PROVIDERS: ADMIT Physical Medicine & Rehabilitation; ATTEND Physical Medicine & Rehabilitation
DX: R26.0 Ataxic gait (principal); G72.9 Myopathy, unspecified; E87.1 Hypo-osmolality and hyponatremia; E87.2 Acidosis; I69.354 Hemiplegia and hemiparesis following cerebral infarction affecting left non-dominant side; I10 Essential (primary) hypertension; G31.84 Mild cognitive impairment of uncertain or unknown etiology; F41.9 Anxiety disorder, unspecified; K59.00 Constipation, unspecified; E78.5 Hyperlipidemia, unspecified; J43.9 Emphysema, unspecified; F17.210 Nicotine dependence, cigarettes, uncomplicated; F10.10 Alcohol abuse, uncomplicated; E11.51 Type 2 diabetes mellitus with diabetic peripheral angiopathy without gangrene; E11.40 Type 2 diabetes mellitus with diabetic neuropathy, unspecified; M50.30 Other cervical disc degeneration, unspecified cervical region; Z53.29 Procedure and treatment not carried out because of patient's decision for other reasons; Z95.820 Peripheral vascular angioplasty status with implants and grafts; Z99.81 Dependence on supplemental oxygen
CPT/HCPCS: 10092

== ENCOUNTER → 2020-05-12 | Outpatient (CLI) | payer OTHER | LOC: CAT 14:03 | PROVIDERS: ATTEND Internal Medicine Pulmonary Disease | DX: J43.2 Centrilobular emphysema (principal) ==

== ENCOUNTER 2020-10-26 14:21 | Inpatient (IN) | payer OTHER ==
[~2020-10-26] VITALS: Ht 175.3 cm; Wt 71.7 kg
[2020-10-26 14:29] VITALS: BP 133/88
[2020-10-26 16:24] LABS: ABSOLUTE NEUTROPHILS 6.8 thou/uL (1.4-8.2); BASOPHILS 0.5 % (0.0-2.0); EOSINOPHILS 5.6 % (0.0-3.0); HEMATOCRIT 42.7 % (42.0-52.0); HEMOGLOBIN 14.3 gm/dL (14.0-18.0); LYMPHOCYTES 16.8 % (24.0-44.0); MCH 33.7 pg (26.0-34.0); MCHC 33.5 g/dL (28.0-37.0); MCV 100.7 fL (80.0-100.0); MONOCYTES 9.4 % (1.0-8.0); PLATELET COUNT 296 thou/uL (150-400); POLYS 67.7 % (36.0-66.0); RBC 4.24 mil/uL (4.50-6.00)
[2020-10-26 16:27] LABS: ANION GAP 10 mmol/L (7-16); BUN 6 mg/dL (7-18); CALCIUM 8.9 mg/dL (8.5-10.1); CHLORIDE 101 mmol/L (98-107); CO2 27 mmol/L (21-32); CREATININE 0.9 mg/dL (0.7-1.3); GLUCOSE 124 mg/dL (74-106); POTASSIUM 4.2 mmol/L (3.5-5.1); SODIUM 138 mmol/L (136-145)
[2020-10-26 16:37] LABS: ALBUMIN 3.9 g/dL (3.4-5.0); DIRECT BILIRUBIN 0.2 mg/dL (<0.1-0.2); SGOT 41 U/L (15-37); SGPT 34 U/L (16-63); TOTAL BILIRUBIN 0.4 mg/dL (0.2-1.0); TOTAL PROTEIN 7.6 g/dL (6.4-8.2); TROPONIN-I <0.06 ng/mL (<0.06)
[2020-10-26 17:18] LABS: BE(vivo) 0.9 mmol/L (-2 to +3); PO2 59.4 mmHg (80.0-100.0); pH 7.399 (7.360-7.450); sO2 90.7 % (92.0-98.0)
[2020-10-26 21:39] VITALS: BP 152/79
--- NOTE | 2020-10-27 08:51 | EKG ---
[address] [place] [address] ELECTROCARDIOGRAM REPORT Name: ZO PÉREZ Room #: 170-5 ADM IN M.R.#: [id number] Admission: 10/26/20 Attend Phys: Noah Michelle MD Discharge: Date of : 59 Report #: [id number] [facility] ED Test Date: 2020-10-26 Test Time: 14:58:02 Pat Name: ZO PÉREZ Department: Room: 170 Gender: M Maintenance Associate: JCHAICATHLEEN : 1955 Requested By: Chris Delong Order Number: [id number] : Joseph Rodriguez Measurements Intervals [place] Rate: 124 P: 60 NH: 142 QRS: 37 QRSD: 93 T: 67 QT: 308 QTc: 443 Interpretive Statements Sinus tachycardia Compared to ECG 02/26/2020 13:54:05 Sinus rhythm no longer present Electronically Signed On 10-27-2020 8:50:53 HYDRAULIC ASSEMBLER by Joseph Rodriguez [email or web address] <ELECTRONICALLY SIGNED> By: Joseph Rodriguez MD, [facility] 10/27/20 0850 1458 1458 Joseph Rodriguez MD, FACC /EPI
[2020-10-27 09:53] VITALS: BP 113/70
[2020-10-27 14:04] VITALS: BP 113/70
[2020-10-27 14:46] VITALS: BP 119/68
[2020-10-27 15:18] VITALS: BP 156/78
[2020-10-27 19:27] VITALS: BP 142/90
[2020-10-27 23:43] VITALS: BP 135/89
[2020-10-28 03:29] LABS: HEMATOCRIT 42.5 % (42.0-52.0); MCH 33.6 pg (26.0-34.0); MCV 101.9 fL (80.0-100.0); RBC 4.17 mil/uL (4.50-6.00); RDW 14.2 % (10.5-14.5); WBC 17.1 thou/uL (4.0-11.0)
[2020-10-28 03:40] LABS: CALCIUM 9.1 mg/dL (8.5-10.1); CREATININE 0.9 mg/dL (0.7-1.3); MAGNESIUM 2.4 mg/dL (1.8-2.4); POTASSIUM 4.1 mmol/L (3.5-5.1)
--- NOTE | 2020-10-28 04:47 | NUR ---
PT ALERT AND ORIENTED. VITALS STABLE. ADMIT WITH COPD EXAC. CHRONIC O2 USE 3L. PT DENIES SOB BUT REPORT EXTREME NONE PRODUCTIVE COUGH THAT HAS HIS LEFT BACK MUSCLES HURTING FROM COUGHING TOO MUCH. BRINE WELL OPERATOR CLINIC PHYSICIAN DIRECTOR NOTIFIED. LIDOCAINE AND GUAIFENESIN/w CODEINE ORDERED. PT REPORT MILD RELIEF FROM THE COUGH. PT ALSO REPORTS NO BM IN THE LAST 4 DAYS. SUPPOSITORY X 1 ORDERED. WILL CONTINUE TO FOLLOW POC. OTHERWISE NO OTHER EVENTS OVERNIGHT/
[2020-10-28 04:49] VITALS: BP 121/75
[2020-10-28 08:52] VITALS: BP 132/78
[2020-10-28 10:55] VITALS: BP 109/67
[2020-10-28 15:43] VITALS: BP 113/73
[2020-10-28 20:15] VITALS: BP 119/71
[2020-10-29 04:45] VITALS: BP 121/72
--- NOTE | 2020-10-29 05:26 | NUR ---
ASSESSMENTS CHARTED, MEDS CHARTED GIVEN. C/O PAIN IN LEFT RIB CAGE FROM COUGHING. ON 3 LITERS OXYGEN NC. PATIENT HAD LIDOCAINE PATCH ON LEFT SIDE OF RIB CAGE WHICH WAS REMOVED AROUND 2100. PATIENT UP TO BATHROOM, HAD BOWEL MOVEMENT. FALL PRECAUTIONS IN PLACE DURING SHIFT.
[2020-10-29 05:36] LABS: GLYCOHEMOGLOBIN (HGB A1C) 5.4 % (4.8-5.6)
[2020-10-29 10:08] VITALS: BP 123/69
[2020-10-29 14:18] VITALS: BP 136/70
--- NOTE | 2020-10-29 16:09 | NUR ---
Assumed care of pt at 0700. Pt a&ox4. On 3L O2. IV antibiotics infusing. States he has pain on his left flank when he coughs. Will ambulate pt in the halls this afternoon. Coarse lung sounds. Call light within reach. Will continue to monitor.
[2020-10-29 17:57] VITALS: BP 131/82
[2020-10-29 19:28] VITALS: BP 139/81
[2020-10-30 05:46] VITALS: BP 138/81
--- NOTE | 2020-10-30 07:28 | NUR ---
ASSUMED CARE OF THE PATIENT AT 1900; AOX4; SBA TO TOILET; SR ON THE MONITOR; VSS/ASSESSMENTS CHARTED C/O OF COUGHING MANAGED WITH PRN MEDICATIONS; PLAN IS FOR PATIENT TO D/C TO HOME TODAY; WILL CONTINUE TO MONITOR.
[2020-10-30 08:30] VITALS: BP 136/70
[2020-10-30] MEDS ORDERED: RAYOS5 MG PO (10:07)
[2020-10-30] MEDS ORDERED: AZITHROMYCIN500 MG PO (10:07)
[2020-10-30] MEDS ORDERED: LIDODERM1 EACH TOP (10:07)
--- NOTE | 2020-10-30 11:42 | NUR ---
ASSUMED CARE OF PT AT 0700. PT VSS, NO C/O PAIN AT THIS TIME. PT REPORTS HE IS READY TO GO HOME, DOCTOR APPROVED PT TO DRIVE HIMSELF HOME AFTER THE PHYSICAL THERAPY EVALUATION. NURSE CALLED DR. AMOS TO REPORT HX OF CVA, DOCTOR INFORMED NURSE PT IS SAFE TO DRIVE SELF HOME.
[2020-10-30 12:32] VITALS: BP 136/70
== END 2020-10-30 13:39 | disposition home or self-care (01) | DRG 189 ==
LOC: ER 14:21 → 2N 19:21 → EROBS 19:21 → 2N 10-27 14:53
PROVIDERS: Emergency Medicine; Hospitalist; ADMIT Internal Medicine; ATTEND Internal Medicine
DX: J96.21 Acute and chronic respiratory failure with hypoxia (principal); I69.354 Hemiplegia and hemiparesis following cerebral infarction affecting left non-dominant side; E78.5 Hyperlipidemia, unspecified; I10 Essential (primary) hypertension; J43.9 Emphysema, unspecified; F10.11 Alcohol abuse, in remission; E11.42 Type 2 diabetes mellitus with diabetic polyneuropathy; E11.51 Type 2 diabetes mellitus with diabetic peripheral angiopathy without gangrene; J84.10 Pulmonary fibrosis, unspecified; Z20.828 Contact with and (suspected) exposure to other viral communicable diseases
CPT/HCPCS: 10081

== ENCOUNTER → 2020-11-10 | Outpatient (CLI) | payer OTHER ==
[~2020-11-10] MED LIST changes: +LIDODERM1 EACH TOP
== END ==
LOC: CAT 10:00
PROVIDERS: ATTEND Internal Medicine Pulmonary Disease
DX: J43.2 Centrilobular emphysema (principal); K80.80 Other cholelithiasis without obstruction; R91.1 Solitary pulmonary nodule; R63.4 Abnormal weight loss; Z72.0 Tobacco use

== ENCOUNTER 2020-11-16 11:39 | Inpatient (IN) | payer OTHER ==
[~2020-11-16] VITALS: Ht 175.3 cm; Wt 73.1 kg
[2020-11-16 11:40] VITALS: BP 110/74
[2020-11-16 12:44] LABS: ABSOLUTE NEUTROPHILS 7.9 thou/uL (1.4-8.2); BASOPHILS 0.7 % (0.0-2.0); HEMATOCRIT 42.6 % (42.0-52.0); HEMOGLOBIN 14.1 gm/dL (14.0-18.0); LYMPHOCYTES 14.4 % (24.0-44.0); MCV 100.2 fL (80.0-100.0); MONOCYTES 7.4 % (1.0-8.0); PLATELET COUNT 311 thou/uL (150-400); POLYS 67.5 % (36.0-66.0); RBC 4.25 mil/uL (4.50-6.00); RDW 13.9 % (10.5-14.5); WBC 11.8 thou/uL (4.0-11.0)
[2020-11-16 12:47] LABS: ANION GAP 10 mmol/L (7-16); BUN 4 mg/dL (7-18); CALCIUM 8.8 mg/dL (8.5-10.1); CHLORIDE 99 mmol/L (98-107); CO2 25 mmol/L (21-32); CREATININE 0.9 mg/dL (0.7-1.3); GLUCOSE 113 mg/dL (74-106); POTASSIUM 4.4 mmol/L (3.5-5.1); SODIUM 134 mmol/L (136-145)
[2020-11-16 12:57] LABS: ALBUMIN 3.4 g/dL (3.4-5.0); SGOT 33 U/L (15-37); SGPT 33 U/L (30-65); TOTAL BILIRUBIN 0.8 mg/dL (0.2-1.0); TOTAL PROTEIN 7.2 g/dL (6.4-8.2); TROPONIN-I <0.06 ng/mL (<0.06)
[2020-11-16] MEDS ORDERED: CLOPIDOGREL75 MG PO (13:28)
[2020-11-16] MEDS ORDERED: LISINOPRIL5 MG PO (13:28)
[2020-11-16] MEDS ORDERED: GABAPENTIN600 M1 PO (13:30)
--- NOTE | 2020-11-16 14:07 | EKG ---
[place] [address] [facility] [place] [address] ELECTROCARDIOGRAM REPORT Name: ZO PÉREZ [facility]: [facility] [id number] Admission: 11/16/20 Attend Phys: Discharge: Date of : 59 Report #: [id number] [facility] ED Test Date: 2020-11-16 Test Time: 13:07:19 Pat Name: ZO PÉREZ Department: Room: Gender: M Manager Wound: MOISES : 1955 Requested By: Isaias Javier Order Number: [id number] MD: Joseph Rodriguez Measurements Intervals [place] Rate: 101 P: 0 VA: 52 QRS: 61 QRSD: 91 T: 85 QT: 329 QTc: 427 Interpretive Statements Sinus tachycardia Ventricular premature complex Right atrial enlargement Borderline low voltage, extremity leads Compared to ECG 11/16/2020 11:57:01 Ventricular premature complex(es) now present Atrial abnormality now present Atrial fibrillation no longer present Myocardial infarct finding no longer present Prolonged QT interval no longer present Electronically Signed On 11-16-2020 14:07:35 VENTILATION EQUIPMENT TENDER by Joseph Rodriguez [email or web address] <ELECTRONICALLY SIGNED> By: Joseph Rodriguez MD, [facility] 11/16/20 1407 06 06 Joseph Rodriguez MD, FAC /EPI
--- NOTE | 2020-11-16 14:07 | EKG ---
[place] [address] [place] [address] ELECTROCARDIOGRAM REPORT Name: ZO PÉREZ [id number] Admission: 11/16/20 Attend Phys: Discharge: Date of : 59 Report #: [id number] [facility] ED Test Date: 2020-11-16 Test Time: 11:57:01 Pat Name: ZO PÉREZ Department: Room: Gender: M Tape Recording Machine Operator: SHAYLA : 1955 Requested By: Isaias Javier Order Number: [id number] MD: Joseph Rodriguez Measurements Intervals [place] Rate: 93 P: [place]: QRS: -19 QRSD: 90 T: 206 QT: 411 QTc: 512 Interpretive Statements Atrial fibrillation Inferior infarct, old Lateral leads are also involved Compared to ECG 10/26/2020 14:58:02 Prolonged QT interval now present Sinus tachycardia no longer present Electronically Signed On 11-16-2020 14:07:11 DEGREASER by Joseph Rodriguez [email or web address] <ELECTRONICALLY SIGNED> By: Joseph Rodriguez MD, [facility] 11/16/20 1407 1157 1157 Joseph Rodriguez MD, FACC /EPI
[2020-11-16 20:58] VITALS: BP 109/68
[2020-11-16 21:23] VITALS: BP 110/60
[2020-11-16 21:45] VITALS: BP 147/91
--- NOTE | 2020-11-16 22:54 | NUR ---
PATIENT IS A NEW ADMISSION TO THE UNIT THIS SHIFT. HE ARRIVED VIA CART FROM THE ER AND WAS ABLE TO AMBULATE TO THE BED WITHOUT INCIDENT. PATIENT IS SHORT OF AIR AND ANXIOUS. PRELIMINARY VITAL SIGNS STABLE. HE IS FULLY ALERT AND ORIENTED AND ABLE TO CALL APPROPRIATELY FOR NEEDS. PATIENT IS A HIGH FALL RISK BUT IS UNWILLING TO HAVE BED ALARM ACTIVATED. NURSE TO COMPLETE ADMISSION AND INITIATE PLAN OF CARE.
[2020-11-16 23:25] VITALS: BP 120/68
[2020-11-17 04:16] VITALS: BP 113/64
[2020-11-17 05:26] LABS: HEMATOCRIT 40.3 % (42.0-52.0); HEMOGLOBIN 13.5 gm/dL (14.0-18.0); MCH 34.1 pg (26.0-34.0); MCHC 33.5 g/dL (28.0-37.0); MCV 101.9 fL (80.0-100.0); RBC 3.96 mil/uL (4.50-6.00)
[2020-11-17 05:46] LABS: CALCIUM 8.5 mg/dL (8.5-10.1); CREATININE 1.2 mg/dL (0.7-1.3); POTASSIUM 3.9 mmol/L (3.5-5.1)
--- NOTE | 2020-11-17 07:10 | NUR ---
BREATHING STABLE ON FOUR LITERS NASAL CANNULA EVIDENCED BY ASSESSMENTS AND SPOT OXYGENATION CHECKS. PATIENT REMAINS PAIN FREE. UP MULTIPLE TIMES WITH ASSISTANCE INCIDENT FREE. CONTINUE PLAN OF CARE.
[2020-11-17 08:20] VITALS: BP 130/68
[2020-11-17 12:10] VITALS: BP 133/72
--- NOTE | 2020-11-17 17:24 | NUR ---
Chart reviewed and case discussed with nursing. Pt admitted with copd exac. He lives at home with his spouse. He has home o2 with a baseline of 3liters. Pt known to cm from 5N rehab stay in April 2020. He dc'd to home with [facility]. 2 steps to enter the home and 12 to the basement;but he can avoid going down there. Family is supportive. has her own health issues. Pt is normally indep with a rwalker/cane and his o2. No cm interventions indicated at this time. Nursing to request therapy evals if indicated. Pt txing with sba in his room and steady on his feet. Will follow along should dc needs arise.
[2020-11-17 17:45] VITALS: BP 111/58
[2020-11-17 17:50] VITALS: BP 158/63
--- NOTE | 2020-11-17 19:38 | NUR ---
ASSUMED CARE PT SHIFT CHANGE. ASSESSMENTS CHARTED.MEDS GIVEN PER JAN. VSS. DENIES PAIN. O2 SATS WNL 3-4L O2. INCENT SPRIOMETER AT BEDSIDE, PT COMPLIANT. PT UP WITH PHYS THERAPY TOLERATING WELL. PLAN FOR HOME ONCE MEDICALLY STABLE. PT DENIES NEEDS AT THIS TIME. CONTINUING TO MONITOR AND FOLLOW POC. REPORT PASSED ONTO NOC RN.
[2020-11-17 20:18] VITALS: BP 110/64; BP 172/81
[2020-11-18 03:27] LABS: HEMATOCRIT 37.6 % (42.0-52.0); HEMOGLOBIN 12.4 gm/dL (14.0-18.0); MCH 33.2 pg (26.0-34.0); MCHC 32.9 g/dL (28.0-37.0); RBC 3.73 mil/uL (4.50-6.00); RDW 14.3 % (10.5-14.5)
[2020-11-18 03:39] LABS: CALCIUM 8.1 mg/dL (8.5-10.1); POTASSIUM 3.7 mmol/L (3.5-5.1)
[2020-11-18 04:45] VITALS: BP 113/79
--- NOTE | 2020-11-18 05:09 | NUR ---
ASSUMED PATIENT CARE AT 1845. VITAL SIGNS STABLE WITH PATIENT HAVING NO COMPLAINTS OF PAIN OR NAUSEA. FULLY ORIENTED, PATIENT IS ABLE TO CALL APPROPRIATELY FOR REQUESTS AND PARTICIPATE IN CARE. BREATHING STABLE ON NASAL CANNULA EVIDENCED BY ASSESSMENTS AND SPOT OXYGENATION CHECKS. PATIENT PLACED ON VENTI MASK EARLY IN SHIFT SOLEY DUE TO NOSE BLEED WHICH WAS RESOLVED FOLLOWING INTERVENTION. UP MULTIPLE TMES WITH ASSISTANCE INCIDENT FREE. PATIENT APPEARS TO BE STRONG AND BALANCED WHEN AMBULATING. CONTINUE PLAN OF CARE.
[2020-11-18 08:28] VITALS: BP 128/68
[2020-11-18 11:40] VITALS: BP 128/73
[2020-11-18 16:21] VITALS: BP 125/69
--- NOTE | 2020-11-18 19:50 | NUR ---
ASSUMED CARE OF PT AT SHIFT CHANGE. ASSESSMENTS CHARTED. MEDS GIVEN PER JAN. PT A&OX4, NO C/O PAIN OR DISTRESS DURING SHIFT . PT REPORTS STARTING TO FEEL BETTER. UP AD NEGRO. DR. WALLACE STATED FOR PT TO STAY A COUPLE MORE DAYS.
[2020-11-18 20:15] VITALS: BP 138/84
[2020-11-19 03:18] LABS: HEMATOCRIT 37.6 % (42.0-52.0); HEMOGLOBIN 12.6 gm/dL (14.0-18.0); MCHC 33.5 g/dL (28.0-37.0); MCV 101.5 fL (80.0-100.0); RBC 3.71 mil/uL (4.50-6.00); RDW 14.1 % (10.5-14.5); WBC 16.8 thou/uL (4.0-11.0)
[2020-11-19 03:32] LABS: CREATININE 0.9 mg/dL (0.7-1.3); POTASSIUM 3.7 mmol/L (3.5-5.1)
[2020-11-19 03:45] LABS: CALCIUM 8.4 mg/dL (8.5-10.1)
--- NOTE | 2020-11-19 03:45 | NUR ---
ASSUMED CARE FROM OUTGOING RN @MIDNIGHT. PT RESTING IN BED. ON 4L OF O2. IV INTACT AND SL. NO FURTHER SIGNS OF DISCOMFORT. WILL CONT TO MONITOR TILL EOS.
[2020-11-19 04:45] VITALS: BP 126/69
[2020-11-19 07:23] VITALS: BP 136/87
[2020-11-19 16:21] VITALS: BP 136/62
[2020-11-19 16:26] VITALS: BP 106/85
--- NOTE | 2020-11-19 18:10 | NUR ---
ASSUMED PATIENT CARE AT 0700. A/O X4. TOLERATED ON 4L/NC. UP AD NEGRO . PROGRESSING TOWARDS POC GOALS.
[2020-11-19 20:54] VITALS: BP 132/73
[2020-11-20 03:20] LABS: HEMATOCRIT 39.7 % (42.0-52.0); HEMOGLOBIN 13.2 gm/dL (14.0-18.0); MCH 33.3 pg (26.0-34.0); MCHC 33.2 g/dL (28.0-37.0); MCV 100.5 fL (80.0-100.0); RBC 3.95 mil/uL (4.50-6.00); RDW 13.9 % (10.5-14.5); WBC 15.9 thou/uL (4.0-11.0)
[2020-11-20 03:32] LABS: CALCIUM 8.6 mg/dL (8.5-10.1); CREATININE 0.9 mg/dL (0.7-1.3); POTASSIUM 4.1 mmol/L (3.5-5.1)
--- NOTE | 2020-11-20 04:51 | NUR ---
ASSUME CARE 190. PT/VITALS STABLE. DENIES ANY PAIN. NO DISTRESS NOTED THROUGH THE NIGHT/ ADEQUATE REST. ASSESSMENTS ASA CHARTED. PROGRESSING WELL WITH POC. PLAN IS POSSIBLE DISCHARE WITHIN 1-2 DAYS. WILL CONTINUE TO MONITOR AND FOLLOW WITH POC
[2020-11-20 05:02] VITALS: BP 102/69
[2020-11-20 07:30] VITALS: BP 108/61
[2020-11-20] MEDS ORDERED: IPRAT-ALBUT 0.5-3 ML INH (11:34)
[2020-11-20] MEDS ORDERED: LEVOFLOXACIN750 MG PO (11:35)
[2020-11-20] MEDS ORDERED: PREDNISONE 10 M10 M1 PO (11:35)
[2020-11-20 11:40] VITALS: BP 124/78
[2020-11-20 11:57] VITALS: BP 124/78
--- NOTE | 2020-11-20 12:40 | NUR ---
ASSUMED CARE OF PT AT SHIFT CHANGE. ASSESSMENTS CHARTED. MEDS GIVEN PER JAN. PT A&0X4, NO C/O PAIN, WALKING IN HALLS W/O ASSISTANCE. DISCHARGE ORDERS AND INSTRUCTIONS COMPLETE. IV AND TELE DC'D. THIS NURSE TOOK PT TO EAST ENTRANCE VIA WHEELCHAIR TO HIS OWN VEHICLE. DRIVING HIMSELF HOME.
== END 2020-11-20 13:00 | disposition home or self-care (01) | DRG 189 ==
LOC: ER 11:39 → 2N 14:39 → EROBS 14:39 → 2N 21:33
PROVIDERS: Emergency Medicine; ADMIT Hospitalist; ATTEND Hospitalist
DX: J96.21 Acute and chronic respiratory failure with hypoxia (principal); J43.9 Emphysema, unspecified; I10 Essential (primary) hypertension; E78.5 Hyperlipidemia, unspecified; J84.10 Pulmonary fibrosis, unspecified; E11.51 Type 2 diabetes mellitus with diabetic peripheral angiopathy without gangrene; E11.42 Type 2 diabetes mellitus with diabetic polyneuropathy; Z20.822 Contact with and (suspected) exposure to COVID-19; Z86.73 Personal history of transient ischemic attack (TIA), and cerebral infarction without residual deficits; Z79.899 Other long term (current) drug therapy; Z87.891 Personal history of nicotine dependence
CPT/HCPCS: 10081

== ENCOUNTER → 2020-12-07 | Outpatient (CLI) | payer OTHER ==
[~2020-12-07] MED LIST changes: +CLOPIDOGREL75 MG PO; +LEVOFLOXACIN750 MG PO; +LISINOPRIL5 MG PO; +PREDNISONE 10 M10 M1 PO
== END ==
LOC: RAD 14:02
PROVIDERS: ATTEND Internal Medicine Pulmonary Disease
DX: J43.9 Emphysema, unspecified (principal)

== ENCOUNTER 2021-01-10 22:40 | Emergency (ER) | payer OTHER ==
[~2021-01-10] VITALS: Ht 175.3 cm; Wt 74.8 kg
[2021-01-10 23:26] LABS: BASOPHILS 0.8 % (0.0-2.0)
[2021-01-10 23:28] LABS: EOSINOPHILS 5.2 % (0.0-3.0); HEMATOCRIT 42.3 % (42.0-52.0); HEMOGLOBIN 14.3 gm/dL (14.0-18.0); LYMPHOCYTES 34.8 % (24.0-44.0); MCH 33.9 pg (26.0-34.0); MCHC 33.9 g/dL (28.0-37.0); MCV 100.1 fL (80.0-100.0); MONOCYTES 8.1 % (1.0-8.0); PLATELET COUNT 308 thou/uL (150-400); POLYS 51.1 % (36.0-66.0); RBC 4.22 mil/uL (4.50-6.00); RDW 13.5 % (10.5-14.5); WBC 9.8 thou/uL (4.0-11.0)
[2021-01-10 23:30] LABS: ANION GAP 10 mmol/L (7-16); BUN 9 mg/dL (7-18); CHLORIDE 101 mmol/L (98-107); CO2 27 mmol/L (21-32); GLUCOSE 138 mg/dL (74-106); POTASSIUM 3.4 mmol/L (3.5-5.1); SODIUM 138 mmol/L (136-145)
[2021-01-10 23:36] LABS: APTT 25.6 Seconds (24.5-32.8); D-DIMER 0.24 ug/mLFEU (0.19-0.50); PROTIME 10.7 Seconds (9.3-11.4)
[2021-01-10 23:40] LABS: ALBUMIN 3.7 g/dL (3.4-5.0); SGOT 59 U/L (15-37); SGPT 55 U/L (30-65); TOTAL BILIRUBIN 0.3 mg/dL (0.2-1.0); TOTAL PROTEIN 7.5 g/dL (6.4-8.2); TROPONIN-I <0.06 ng/mL (<0.06)
[2021-01-10] MEDS ORDERED: YUPELRI175 MCG/3 INH (23:43)
[2021-01-10] MEDS ORDERED: SPIRIVA18 MCG INH (23:47)
[2021-01-11] MEDS ORDERED: DOXYCYCLINE 10100 MG PO (00:48)
[2021-01-11 01:00] VITALS: BP 132/75
--- NOTE | 2021-01-12 06:58 | EKG ---
[place] [address] [place] [address] ELECTROCARDIOGRAM REPORT Name: ZO PÉREZ [facility] [id number] Admission: 01/10/21 Attend Phys: Discharge: 01/11/21 Date of : 59 Report #: [id number] [facility] ED Test Date: 2021-01-10 Test Time: 23:14:49 Pat Name: ZO PÉREZ Department: Room: Gender: M Process Specialist: rupesh : 1955 Requested By: Ray Tapia Order Number: [id number] MD: Joseph Rodriguez Measurements Intervals [place] Rate: 98 P: 59 NH: 157 QRS: 45 QRSD: 96 T: 60 QT: 351 QTc: 449 Interpretive Statements Sinus rhythm Compared to ECG 11/16/2020 13:07:19 Sinus tachycardia no longer present Ventricular premature complex(es) no longer present Atrial abnormality no longer present Electronically Signed On 01-12-2021 6:57:59 COSMETIC CHEMIST by Joseph Rodriguez [email or web address] <ELECTRONICALLY SIGNED> By: Joseph Rodriguez MD, [facility] 01/12/21 0657 2314 13 Joseph Rodriguez MD, FACC /EPI
== END 2021-01-11 01:00 | disposition home or self-care (01) ==
LOC: ER 22:40
PROVIDERS: Emergency Medicine
DX: R06.00 Dyspnea, unspecified (principal); J18.9 Pneumonia, unspecified organism; I10 Essential (primary) hypertension; E78.5 Hyperlipidemia, unspecified; F17.210 Nicotine dependence, cigarettes, uncomplicated; Z79.01 Long term (current) use of anticoagulants; Z79.899 Other long term (current) drug therapy; Z20.822 Contact with and (suspected) exposure to COVID-19

== ENCOUNTER → 2021-02-12 | Outpatient (CLI) | payer OTHER ==
[~2021-02-12] MED LIST changes: +DOXYCYCLINE 10100 MG PO; +SPIRIVA18 MCG INH; +YUPELRI175 MCG/3 INH
== END ==
LOC: RAD 12:06
PROVIDERS: ATTEND Internal Medicine Pulmonary Disease
DX: J43.9 Emphysema, unspecified (principal); J98.4 Other disorders of lung; J84.10 Pulmonary fibrosis, unspecified

== ENCOUNTER 2021-03-28 11:07 | Emergency (ER) | payer OTHER ==
[~2021-03-28] VITALS: Ht 175.3 cm; Wt 72.6 kg
[2021-03-28 11:47] LABS: ABSOLUTE NEUTROPHILS 7.3 thou/uL (1.4-8.2); BASOPHILS 0.6 % (0.0-2.0); EOSINOPHILS 11.3 % (0.0-3.0); HEMATOCRIT 42.3 % (42.0-52.0); HEMOGLOBIN 14.2 gm/dL (14.0-18.0); LYMPHOCYTES 12.5 % (24.0-44.0); MCHC 33.6 g/dL (28.0-37.0); MCV 98.3 fL (80.0-100.0); MONOCYTES 6.8 % (1.0-8.0); PLATELET COUNT 331 thou/uL (150-400); POLYS 68.8 % (36.0-66.0); RDW 12.9 % (10.5-14.5); WBC 10.7 thou/uL (4.0-11.0)
[2021-03-28 11:56] LABS: CALCIUM 8.9 mg/dL (8.5-10.1); CREATININE 0.9 mg/dL (0.7-1.3); POTASSIUM 4.1 mmol/L (3.5-5.1)
[2021-03-28 12:10] LABS: ALBUMIN 3.7 g/dL (3.4-5.0); DIRECT BILIRUBIN 0.1 mg/dL (<0.1-0.2); TOTAL BILIRUBIN 0.5 mg/dL (0.2-1.0); TOTAL PROTEIN 7.5 g/dL (6.4-8.2)
[2021-03-28] MEDS ORDERED: DOXYCYCLINE 10100 MG PO (14:10)
[2021-03-28] MEDS ORDERED: MEDROLDOSEPACK PO (14:10)
[2021-03-28] MEDS ORDERED: TESSALON PERLE100 MG PO (14:28)
[2021-03-28 15:05] VITALS: BP 126/54
--- NOTE | 2021-03-28 15:43 | EKG ---
[place] [address] [facility] [place] [address] ELECTROCARDIOGRAM REPORT Name: ZO PÉREZ [facility] [id number] Admission: 03/28/21 Attend Phys: Discharge: 03/28/21 Date of : 59 Report #: [id number] [facility] ED Test Date: 2021-03-28 Test Time: 11:25:57 Pat Name: ZO PÉREZ Department: Room: Gender: Backup Administrator: JAMESON : 1955 Requested By: Alessandro Leach Order Number: [id number] MD: Joseph Rodriguez Measurements Intervals [place] Rate: 97 P: 74 [place]: 151 QRS: 61 QRSD: 88 T: 74 QT: 344 QTc: 437 Interpretive Statements Sinus rhythm Ventricular premature complex Compared to ECG 01/10/2021 23:14:49 Ventricular premature complex(es) now present Electronically Signed On 03-28-2021 15:42:50 CDT by Joseph Rodriguez [email or web address] <ELECTRONICALLY SIGNED> By: Joseph Rodriguez MD, [facility] 03/28/21 1542 1125 1125 Joseph Rodriguez MD, FACC /EPI
== END 2021-03-28 15:07 | disposition home or self-care (01) ==
LOC: ER 11:07
PROVIDERS: Nurse Practitioner
DX: J44.1 Chronic obstructive pulmonary disease with (acute) exacerbation (principal); Z20.822 Contact with and (suspected) exposure to COVID-19; F17.210 Nicotine dependence, cigarettes, uncomplicated; I10 Essential (primary) hypertension; F10.10 Alcohol abuse, uncomplicated; E78.5 Hyperlipidemia, unspecified; Z86.73 Personal history of transient ischemic attack (TIA), and cerebral infarction without residual deficits

== ENCOUNTER 2021-04-06 19:33 | Inpatient (IN) | payer OTHER ==
[~2021-04-06] VITALS: Ht 172.7 cm; Wt 71.5 kg
[~2021-04-06 19:33] MED LIST changes: +MEDROLDOSEPACK PO; +TESSALON PERLE100 MG PO
[2021-04-06 19:40] VITALS: BP 198/117
[2021-04-06 20:03] LABS: ABSOLUTE NEUTROPHILS 8.6 thou/uL (1.4-8.2); BASOPHILS 0.7 % (0.0-2.0); EOSINOPHILS 15.5 % (0.0-3.0); HEMOGLOBIN 14.9 gm/dL (14.0-18.0); LYMPHOCYTES 15.3 % (24.0-44.0); MCH 32.6 pg (26.0-34.0); MCHC 33.2 g/dL (28.0-37.0); MCV 98.3 fL (80.0-100.0); MONOCYTES 8.2 % (1.0-8.0); PLATELET COUNT 344 thou/uL (150-400); POLYS 60.3 % (36.0-66.0); RBC 4.58 mil/uL (4.50-6.00); RDW 13.1 % (10.5-14.5); WBC 14.3 thou/uL (4.0-11.0)
[2021-04-06 20:12] LABS: CALCIUM 8.7 mg/dL (8.5-10.1); CREATININE 0.8 mg/dL (0.7-1.3); POTASSIUM 4.2 mmol/L (3.5-5.1)
[2021-04-06 22:24] VITALS: BP 146/75
[2021-04-06] MEDS ORDERED: ADVAIR 250-501 EACH INH (22:50)
[2021-04-06] MEDS ORDERED: LYRICA150 MG PO (22:50)
[2021-04-06] MEDS ORDERED: PLAVIX 75 MG TA75 MG PO (22:51)
[2021-04-06] MEDS ORDERED: NORVASC10 MG PO (22:51)
[2021-04-06 22:53] VITALS: BP 135/81
[2021-04-06] MEDS ORDERED: LIPITOR80 MG PO (22:53)
[2021-04-06 23:00] VITALS: BP 142/78
[2021-04-07] MEDS ORDERED: LYRICA225 MG PO (00:40)
[2021-04-07 04:10] VITALS: BP 141/77
[2021-04-07 05:21] LABS: HEMATOCRIT 40.9 % (42.0-52.0); HEMOGLOBIN 13.6 gm/dL (14.0-18.0); MCH 32.6 pg (26.0-34.0); MCHC 33.3 g/dL (28.0-37.0); MCV 97.9 fL (80.0-100.0); RBC 4.18 mil/uL (4.50-6.00); RDW 12.8 % (10.5-14.5); WBC 12.3 thou/uL (4.0-11.0)
[2021-04-07 05:45] LABS: CALCIUM 8.5 mg/dL (8.5-10.1); POTASSIUM 4.7 mmol/L (3.5-5.1)
[2021-04-07 08:00] VITALS: BP 123/85
--- NOTE | 2021-04-07 08:19 | NUR ---
ASSESSMENTS CHARTED, MEDS CHARTED GIVEN. PATIENT ARRIVED ON THE UNIT FROM THE ED AT 2300. PLACED ON TELEMETRY AND ADMITTED IN THE COMPUTER SYSTEM. PATIENT ARRIVED TALKING NON-STOP AND CONTINUED THROUGH MOST OF THE SHIFT. PATIENT DOES NOT USE A CPAP AT HOME. PT C/O NOT BEING ABLE TO COUGH UP PHLEM IN HIS THROAT. UP WITH ASSIST TO THE BATHROOM. PATIENT STATES HE HOLDS ON TO FURNITURE AND WEBER TO WALK IN HIS HOUSE, HAS STOPPED USING HIS CANE. FALL PRECAUTIONS IN PLACE DURING SHIFT, EXCEPT FOR YELLOW SOCKS. PATIENT REFUSES TO WEAR ANY SOCKS WHILE HE IS HERE.
[2021-04-07 12:12] VITALS: BP 107/65
[2021-04-07 16:00] VITALS: BP 114/65
--- NOTE | 2021-04-07 18:49 | NUR ---
THIS MORNING, PATIENT TOLD NURSE SHE WAS ANXIOUS. PRN XANAX ADMINISTERED AND IT WAS EFFECTIVE SHE VOICED THAT SHE FELT BETTER. HAD A SHOWER THIS AM. RESPIRATIONS ARE EVEN NON LABORED. 100% ON ROOM EVEN THOUGH SHE INSISTED SHE WANTS OXYGEN. WILL CONT WITH PLAN OF CARE.
[2021-04-07 20:00] VITALS: BP 94/56
--- NOTE | 2021-04-08 02:44 | NUR ---
ASSESSMENTS CHARTED, MEDS CHARTED GIVEN. PATIENT RESTING IN BED DURING SHIFT. C/O NOT HAVING HIS LYRICA DURING THE DAY. C/O HIS NOSE BEING DRY FROM THE OXYGEN AND HIS THROAT SORE FROM DRAINAGE. GOT A BUBBLER ON HIS OXYGEN TUBING, SALINE SPRAY FOR HIS NOSE. PATIENT NOW ACHS DUE TO STEROID USE. PATIENT ABLE TO SLEEP THROUGH SOME OF THE SHIFT. FALL PRECAUTIONS IN PLACE DURING SHIFT.
[2021-04-08 03:59] VITALS: BP 112/57
[2021-04-08 05:01] LABS: ABSOLUTE NEUTROPHILS 22.7 thou/uL (1.4-8.2); BASOPHILS 0.1 % (0.0-2.0); HEMATOCRIT 42.1 % (42.0-52.0); HEMOGLOBIN 13.8 gm/dL (14.0-18.0); LYMPHOCYTES 3.9 % (24.0-44.0); MCH 32.4 pg (26.0-34.0); MCHC 32.7 g/dL (28.0-37.0); MCV 99.2 fL (80.0-100.0); MONOCYTES 3.4 % (1.0-8.0); PLATELET COUNT 334 thou/uL (150-400); POLYS 92.6 % (36.0-66.0); RBC 4.25 mil/uL (4.50-6.00); RDW 13.3 % (10.5-14.5); WBC 24.5 thou/uL (4.0-11.0)
[2021-04-08 05:37] LABS: ALBUMIN 3.2 g/dL (3.4-5.0); CALCIUM 8.5 mg/dL (8.5-10.1); CREATININE 0.8 mg/dL (0.7-1.3); MAGNESIUM 2.1 mg/dL (1.8-2.4); PHOSPHORUS 3.3 mg/dL (2.5-4.9); POTASSIUM 3.9 mmol/L (3.5-5.1); TOTAL BILIRUBIN 0.2 mg/dL (0.2-1.0); TOTAL PROTEIN 6.7 g/dL (6.4-8.2)
[2021-04-08 08:20] VITALS: BP 117/65
[2021-04-08 12:25] VITALS: BP 97/73
[2021-04-08 16:00] VITALS: BP 141/63
[2021-04-08 20:30] VITALS: BP 107/54
--- NOTE | 2021-04-09 04:25 | NUR ---
ASSESSMENTS CHARTED, MEDS CHARTED GIVEN. SINUS RHYTHM, SINUS TECH ON TELEMETRY. ON ANTIBIOTIC THERAPY, STEROID THERAPY. PATIENT C/O CONSTIPATION. RECEIVED LAXITIVE, DRANK 12 OZ PRUNE JUICE. PLAN OF CARE IS TO GO HOME IN THE MORNING WITH STEROID THERAPY. FALL PRECAUTION IN PLACE DURING SHIFT.
[2021-04-09 04:45] VITALS: BP 129/67
[2021-04-09 07:24] VITALS: BP 114/55
[2021-04-09 11:18] VITALS: BP 125/77
--- NOTE | 2021-04-09 14:57 | NUR ---
PT ADMITTED FOR COPD EXACBERATION. PT LIVES HOME WITH SPOUSE WHO IS ON HOSPICE CURRENLTY. PT USES O2 AT 4L AT HOME. [facility] IS SUPPLIER. PT HAS WALKER/CANE/WC AT HOME, THAT HE STATED HE DOESNT USE. CM PROVIDED PT WITH MEDICAID INFO FOR HOME/COMMUNITY BASE SERVICES. PT STATED HE STRUGGLES TO GET TO BASEMENT TO DO LAUNDRY. PT STATED HE HAD HH IN PAST TO HELP GET MEDICATION SET UP. PT PCP IS STACEY FRIEND FROM [facility]. REST AND EXERCISE OXIMETRY ORDER TO DETERMINE IF PT HAS INCREASED O2 NEEDS.
--- NOTE | 2021-04-09 16:38 | NUR ---
CM FAXED ORDERS FOR INCREASED O2 NEED TO [facility] [phone]. JOHNATHON [place]/[facility] AT [facility] ([phone]). WHO CONFIRM THEY ARE PT'S O2 SUPPLIER. PT HAS 3 TANKS PRESENT. ONE IN HOSPITAL ROOM AND 2 IN CAR TO TRAVEL HOME WITH. JOHNATHON CONFIRMED WITH DR ALVAREZ THAT PT WAS OK TO GO WITH TANKS IN HIS POSSESSION. PT HAD PT BEDSIDE RN, SHANTAL, ENSURE TANKS HAD ADEQUETE OXYGEN. SHANTAL CONFIRMED PT COULD USE TANK IN ROOM TO TRAVEL HOME WITH.
[2021-04-09 16:43] VITALS: BP 125/77
[2021-04-09 18:44] VITALS: BP 125/77
[2021-04-09] MEDS ORDERED: MUCINEX600 MG PO (19:06)
[2021-04-09] MEDS ORDERED: CEFDINIR300 MG PO (19:08)
[2021-04-09] MEDS ORDERED: PREDNISONE 10 M10 MG PO (19:08)
[2021-04-09] MEDS ORDERED: NYSTATIN100000 UNI SW&SWALLOW (19:09)
--- NOTE | 2021-04-09 20:21 | NUR ---
PATIENT WAS DISCHARGED AT SHIFT CHANGE. DISCHARGE PAPERWORK GONE OVER WITH PATIENT, COPY GIVEN TO PATIENT. PATIENTS BELONGINGS WERE GATHERED UP, PATIENT WHEELED TO ED ENTRANCE WHERE HIS CAR WAS PARKED. PATIENT HAD 3 OXYGEN TANKS IN HIS CARE TO GET HIM HOME. PATIENT DISCHARGED IN THE COMPUTER.
[2021-04-12] MEDS ORDERED: NYSTATIN100000 UNI SW&SWALLOW (16:21)
== END 2021-04-09 20:20 | disposition home or self-care (01) | DRG 189 ==
LOC: ER 19:33 → EROBS 21:40 → 2N 21:40
PROVIDERS: Emergency Medicine; Nurse Practitioner Family; ADMIT Internal Medicine; ATTEND Internal Medicine
DX: J96.21 Acute and chronic respiratory failure with hypoxia (principal); I69.354 Hemiplegia and hemiparesis following cerebral infarction affecting left non-dominant side; I10 Essential (primary) hypertension; E78.5 Hyperlipidemia, unspecified; J43.9 Emphysema, unspecified; I25.10 Atherosclerotic heart disease of native coronary artery without angina pectoris; E11.42 Type 2 diabetes mellitus with diabetic polyneuropathy; E11.51 Type 2 diabetes mellitus with diabetic peripheral angiopathy without gangrene; J84.10 Pulmonary fibrosis, unspecified; K59.00 Constipation, unspecified; Z99.81 Dependence on supplemental oxygen; Z95.820 Peripheral vascular angioplasty status with implants and grafts; Z79.899 Other long term (current) drug therapy; Z87.891 Personal history of nicotine dependence; I69.398 Other sequelae of cerebral infarction
CPT/HCPCS: 10081

== ENCOUNTER 2021-05-05 09:55 | Emergency (ER) | payer OTHER ==
[~2021-05-05] VITALS: Ht 175.3 cm; Wt 72.6 kg
[~2021-05-05 09:55] MED LIST changes: +CEFDINIR300 MG PO; +LYRICA150 MG PO; +LYRICA225 MG PO; +NYSTATIN100000 UNI SW&SWALLOW; +PREDNISONE 10 M10 MG PO
[2021-05-05 10:30] LABS: BASOPHILS 0.3 % (0.0-2.0); EOSINOPHILS 3.9 % (0.0-3.0); HEMATOCRIT 41.1 % (42.0-52.0); LYMPHOCYTES 7.7 % (24.0-44.0); MCH 32.7 pg (26.0-34.0); MCHC 34.1 g/dL (28.0-37.0); MONOCYTES 4.4 % (1.0-8.0); PLATELET COUNT 347 thou/uL (150-400); POLYS 83.7 % (36.0-66.0); RBC 4.28 mil/uL (4.50-6.00); RDW 13.4 % (10.5-14.5); WBC 11.9 thou/uL (4.0-11.0)
[2021-05-05 10:48] LABS: ANION GAP 4 mmol/L (7-16); BUN 10 mg/dL (7-18); CALCIUM 8.8 mg/dL (8.5-10.1); CHLORIDE 101 mmol/L (98-107); CO2 33 mmol/L (21-32); CREATININE 0.8 mg/dL (0.7-1.3); GLUCOSE 138 mg/dL (74-106); POTASSIUM 3.9 mmol/L (3.5-5.1); SODIUM 138 mmol/L (136-145)
[2021-05-05 10:53] LABS: ALBUMIN 3.7 g/dL (3.4-5.0); SGOT 46 U/L (15-37); SGPT 57 U/L (16-63); TOTAL BILIRUBIN 0.6 mg/dL (0.2-1.0); TOTAL PROTEIN 7.2 g/dL (6.4-8.2); TROPONIN-I <0.06 ng/mL (<0.06)
[2021-05-05 11:30] VITALS: BP 132/85
[2021-05-05] MEDS ORDERED: PREDNISONE 10 M10 M1 PO ×2 (11:34→11:38)
--- NOTE | 2021-05-05 12:06 | EKG ---
[place] [address] [facility] [place] [address] ELECTROCARDIOGRAM REPORT Name: ZO PÉREZ Room #: REG [facility] [id number] Admission: 05/05/21 Attend Phys: Discharge: Date of : 59 Report #: [id number] [facility] ED Test Date: 2021-05-05 Test Time: 10:11:23 Pat Name: ZO PÉREZ Department: Room: Gender: M Asset Protection Specialist: : 1955 Requested By: Pablo Faust Order Number: [id number] MD: Joseph Rodriguez Measurements Intervals [place] Rate: 108 P: 58 NC: 147 QRS: 33 QRSD: 90 T: 54 QT: 332 QTc: 445 Interpretive Statements Sinus tachycardia Multiple ventricular premature complexes Compared to ECG 03/28/2021 11:25:57 Sinus rhythm no longer present Electronically Signed On 05-05-2021 12:06:33 CDT by Joseph Rodriguez [email or web address] <ELECTRONICALLY SIGNED> By: Joseph Rodriguez MD, [facility] 05/05/21 1206 1011 1011 Joseph Rodriguez MD, FACC /EPI
== END 2021-05-05 13:00 | disposition home or self-care (01) ==
LOC: ER 09:55
PROVIDERS: Emergency Medicine
DX: S01.112A Laceration without foreign body of left eyelid and periocular area, initial encounter (principal); I10 Essential (primary) hypertension; E78.5 Hyperlipidemia, unspecified; I25.2 Old myocardial infarction; W18.30XA Fall on same level, unspecified, initial encounter; Y93.89 Activity, other specified; Y92.89 Other specified places as the place of occurrence of the external cause; Y99.8 Other external cause status

== ENCOUNTER → 2021-05-11 | Outpatient (CLI) | payer OTHER | LOC: RAD 09:06 | PROVIDERS: ATTEND Internal Medicine Pulmonary Disease | DX: J98.11 Atelectasis (principal) ==

== ENCOUNTER → 2021-05-17 | Outpatient (CLI) | payer OTHER ==
[2021-05-17 10:10] LABS: HEMATOCRIT 38.2 % (42.0-52.0); HEMOGLOBIN 13.1 gm/dL (14.0-18.0); MCH 32.8 pg (26.0-34.0); MCHC 34.3 g/dL (28.0-37.0); MCV 95.7 fL (80.0-100.0); PLATELET COUNT 317 thou/uL (150-400); RBC 3.99 mil/uL (4.50-6.00); RDW 13.7 % (10.5-14.5); WBC 19.7 thou/uL (4.0-11.0)
[2021-05-17 10:40] LABS: ABSOLUTE NEUTROPHILS 17.1 thou/uL (1.4-8.2); PLATELET ESTIMATE NORMAL
== END ==
LOC: CAT 09:28
PROVIDERS: ATTEND Internal Medicine Pulmonary Disease
DX: J98.11 Atelectasis (principal); J43.8 Other emphysema; K80.20 Calculus of gallbladder without cholecystitis without obstruction; R91.8 Other nonspecific abnormal finding of lung field

== ENCOUNTER 2021-07-10 20:50 | Emergency (ER) | payer OTHER ==
[~2021-07-10] VITALS: Ht 175.3 cm; Wt 77.1 kg
[2021-07-10 20:53] VITALS: BP 130/73
== END 2021-07-10 22:21 | disposition home or self-care (01) ==
LOC: ER 20:50
DX: S61.411A Laceration without foreign body of right hand, initial encounter (principal); I10 Essential (primary) hypertension; J43.9 Emphysema, unspecified; F10.10 Alcohol abuse, uncomplicated; E78.5 Hyperlipidemia, unspecified; F41.9 Anxiety disorder, unspecified; I42.9 Cardiomyopathy, unspecified; F17.210 Nicotine dependence, cigarettes, uncomplicated; Z79.891 Long term (current) use of opiate analgesic; Z79.1 Long term (current) use of non-steroidal anti-inflammatories (NSAID); Z79.899 Other long term (current) drug therapy; W26.8XXA Contact with other sharp object(s), not elsewhere classified, initial encounter; Y93.89 Activity, other specified; Y92.89 Other specified places as the place of occurrence of the external cause; Y99.8 Other external cause status

== ENCOUNTER 2021-09-26 14:01 | Emergency (ER) | payer OTHER ==
[~2021-09-26] VITALS: Ht 175.3 cm; Wt 81.7 kg
[2021-09-26 14:41] LABS: HEMATOCRIT 41.1 % (42.0-52.0); HEMOGLOBIN 13.8 gm/dL (14.0-18.0); MCH 33.6 pg (26.0-34.0); MCHC 33.6 g/dL (28.0-37.0); MCV 99.9 fL (80.0-100.0); PLATELET COUNT 356 thou/uL (150-400); RBC 4.12 mil/uL (4.50-6.00); RDW 17.1 % (10.5-14.5); WBC 13.5 thou/uL (4.0-11.0)
[2021-09-26 15:10] LABS: CALCIUM 8.7 mg/dL (8.5-10.1); CREATININE 0.8 mg/dL (0.7-1.3)
[2021-09-26 15:20] LABS: ALBUMIN 3.7 g/dL (3.4-5.0); TOTAL BILIRUBIN 0.3 mg/dL (0.2-1.0); TOTAL PROTEIN 7.6 g/dL (6.4-8.2)
--- NOTE | 2021-09-26 15:24 | EKG ---
[address] [place] [address] ELECTROCARDIOGRAM REPORT Name: ZO PÉREZ [facility]: [facility] [id number] Admission: 09/26/21 Attend Phys: Discharge: Date of : 59 Report #: [id number] [facility] ED Test Date: 2021-09-26 Test Time: 14:11:04 Pat Name: ZO PÉREZ Department: Room: Gender: M Training Mgr: LUCY : 1955 Requested By: Pablo Faust Order Number: [id number] MD: Hari Key Measurements Intervals [place] Rate: 88 P: 42 [place]: 152 QRS: 27 QRSD: 88 T: 63 QT: 352 QTc: 426 Interpretive Statements Sinus rhythm Compared to ECG 05/05/2021 10:11:23 Sinus tachycardia no longer present Ventricular premature complex(es) no longer present Electronically Signed On 09-26-2021 15:24:09 HORSE TREKKING GUIDE by Hari Key [email or web address] <ELECTRONICALLY SIGNED> By: Hari Key MD 09/26/21 1524 1411 1411 Hari Key MD /EPI
[2021-09-26 16:38] LABS: ANISOCYTOSIS 1+; NUCLEATED RBCS 1 /100WBC
[2021-09-26] MEDS ORDERED: NEXIUM40 MG PO (17:24)
[2021-09-26] MEDS ORDERED: DOXYCYCLINE 10100 MG PO (17:24)
[2021-09-26 17:29] VITALS: BP 143/82
== END 2021-09-26 17:42 | disposition home or self-care (01) ==
LOC: ER 14:01
PROVIDERS: Emergency Medicine
DX: J18.9 Pneumonia, unspecified organism (principal); Z20.822 Contact with and (suspected) exposure to COVID-19; K31.89 Other diseases of stomach and duodenum; R06.00 Dyspnea, unspecified; I10 Essential (primary) hypertension; E78.5 Hyperlipidemia, unspecified; F17.210 Nicotine dependence, cigarettes, uncomplicated; Z86.73 Personal history of transient ischemic attack (TIA), and cerebral infarction without residual deficits; Z79.899 Other long term (current) drug therapy